=== PATIENT | female | born 1990 | race Caucasian/White ===

== ENCOUNTER 2017-09-03 01:58 | Emergency (ER) | payer OTHER ==
[2017-09-03 02:18] VITALS: BP 148/98; PULSE 86; O2SAT 100
[2017-09-03] MEDS ORDERED: AMOXIL 500 MG PO ONE (02:22)
[2017-09-03] MEDS ORDERED: Tylenol #3 Tablet PO ONE (02:23)
--- NOTE | 2017-09-03 02:29 | ERPHSYRPT ---
- History of Present Illness Time Seen by Provider: 09/03/17 02:10 Source: patient Exam Limitations: clinical condition Patient Subjective Stated Complaint: staes she has a new job where she wears ear pieces. irritation and pain to the ears since wearing them Triage Nursing Assessment: ears with no redness noted to outer canal. no drainage noted. painful to touch bilaterally. slight dizziness. denies fever Physician History: PATIENT STATES AFTER USING EAR PLUGS AT WORK FOR 2 DAYS, COMPLAINS OF BILATERAL EARACHES. HAS ONSET OF SEVERE PAIN AND PLACING VINEGAR INTO EAR CANALS. DENIES FEVER, SORETHROAT OR CHILLS. Timing/Duration: gradual onset Severity: severe ENT Location: ear (R), ear (L) Prearrival Treatment: over the counter meds Associated Symptoms: ear pain (R), ear pain (L) Allergies/Adverse Reactions: hydrocodone bitartrate [From Vicodin] Allergy (Verified 09/25/15 23:46) Hx Tetanus, Diphtheria Vaccination/Date Given: Yes Hx Influenza Vaccination/Date Given: No Hx Pneumococcal Vaccination/Date Given: No - Review of Systems Constitutional: No Fever, No Chills Eyes: No Symptoms Ears, Nose, & Throat: Ear Pain Respiratory: No Symptoms, No Cough, No Dyspnea Cardiac: No Chest Pain, No Edema, No Syncope Abdominal/Gastrointestinal: No Abdominal Pain, No Nausea, No Vomiting, No Diarrhea Genitourinary Symptoms: No Symptoms, No Dysuria Musculoskeletal: No Back Pain, No Neck Pain Skin: No Rash Neurological: No Dizziness, No Focal Weakness, No Sensory Changes Psychological: No Symptoms Endocrine: No Symptoms All Other Systems: Reviewed and Negative - Past Medical History Pertinent Past Medical History: Yes Neurological History: No Pertinent History ENT History: No Pertinent History Cardiac History: No Pertinent History Respiratory History: No Pertinent History Endocrine Medical History: No Pertinent History Musculoskeletal History: No Pertinent History GI Medical History: Hemorrhoids History: Other Psycho-Social History: Anxiety Female Reproductive Disorders: No Pertinent History Other Medical History: OCC PANIC ATTACK REGARDING UNKNOWN THINGS. STENT IN MY RIGHT KIDNEY - Past Surgical History Past Surgical History: Yes Neuro Surgical History: No Pertinent History Cardiac: No Pertinent History Respiratory: No Pertinent History Gastrointestinal: No Pertinent History Genitourinary: No Pertinent History Musculoskeletal: Orthopedic Surgery Female Surgical History: Tubal Ligation Other Surgical History: hand surg,.kidney stone removed - Social History Smoking Status: Current every day smoker How long have you smoked: 9 Exposure to second hand smoke: No Drug Use: none Patient Lives Alone: No - Female History Hx Now: No - Nursing Vital Signs Nursing Vital Signs: Initial Vital Signs Temperature 98 F 09/03/17 02:10 Pulse Rate 86 09/03/17 02:10 Respiratory Rate 16 09/03/17 02:10 Blood Pressure 148/98 09/03/17 02:10 O2 Sat by Pulse Oximetry 100 09/03/17 02:10 Pain Scale Pain Intensity 6 - Physical Exam General Appearance: mild distress Eye Exam: bilateral eye: normal inspection, PERRL, EOMI Ear Exam: left ear: TM bulging, bilateral ear: auricle normal (TENDERNESS UPON PALPATION OF TRAGUS), TM red, other (CANAL THICKENING WITH ERYTHEMA) Nasal Exam: normal inspection Throat Exam: pharynx normal, moist mucus membranes, No tonsillar exudate Neck Exam: supple Cardiovascular/Respiratory Exam: normal breath sounds, regular rate/rhythm SpO2 Interpretation: normal SpO2: 100 Oxygen Delivery: Room Air Ordered Tests: Medication Summary Generic Name Dose Route Start Last Admin Trade Name Freq PRN Reason Stop Dose Admin Acetaminophen/Codeine Phosphate 1 tab 09/03/17 02:23 Tylenol #3 Tablet PO 09/03/17 02:24 STAT ONE Amoxicillin 500 mg 09/03/17 02:22 Amoxil 500 Mg PO 09/03/17 02:23 STAT ONE - Progress Progress Note: 09/03/17 02:29 ADMINISTERED AMOXICILLIN 500MG, TYLENOL #3 ORALLY Counseled pt/family regarding: diagnosis, need for follow-up - Departure Time of Disposition: 02:45 Departure Disposition: Home Clinical Impression: LEFT OTITIS MEDIA, BILATERAL OTITIS EXTERNA Condition: Stable Critical Care Time: No Referrals: DOREEN STEVENS MD [Primary Care Provider] - Additional Instructions: BEGIN ANTIBIOTIC AUGMENTIN 875MG TWICE DAILY FOR 10 DAYS. APPLY 3 DROPS OF CORTISPORIN OTIC SUSPENSION INTO BOTH EAR CANALS 4 TIMES DAILY FOR 7 DAYS. TYLENOL #3 EVERY 4 HOURS NEEDED FOR PAIN. CONSULT YOUR PRIMARY CARE PROVIDER FOR FOLLOWUP. RETURN TO WORK 09/07/2017. Prescriptions: Codeine Phosphate/APAP #3 [Tylenol #3 Tablet] 1 tab PO Q4HPRN PRN #15 tablet PRN Reason: Pain Amox Tr/Potass Clav. 875 mg [Augmentin 875-125 Tablet] 875 mg PO BID #20 tablet Eran/Baci/Poly/Hc Ear Susp [Cortisporin Ear Drops 10 ml Suspension] 3 drops OT QID 7 Days #1 bottle
[2017-09-03] MEDS ORDERED: AMOXIL 500 MG ONE (02:30)
[2017-09-03] MEDS ORDERED: Tylenol #3 Tablet ONE (02:30)
== END 2017-09-03 03:00 | disposition home or self-care (01) ==
LOC: ED 01:58
DX: H66.92 Otitis media, unspecified, left ear (principal); H60.93 Unspecified otitis externa, bilateral
CPT/HCPCS: 99283; A9270-GY

== ENCOUNTER 2018-02-07 15:28 | Emergency (ER) | payer SELFPAY ==
[2018-02-07 15:46] VITALS: O2SAT 98
--- NOTE | 2018-02-07 15:57 | ERPHSYRPT ---
- History of Present Illness Time Seen by Provider: 02/07/18 15:45 Source: patient Exam Limitations: no limitations Patient Subjective Stated Complaint: cough, sore throat, wheezing for three days Triage Nursing Assessment: ambulated to room per self. occasional dry cough noted. exp wheezes noted. resp nonlabored. Physician History: 27 y/o white female smoker presents with cough, sore throat and wheezing for 3 days. pt can use tylenol with codeine but not hydrocodone based meds. Timing/Duration: day(s) (3) Cough Quality/Degree: mild (more severe today) Possible Cause: occasional episodes Modifying Factors: Improves With: coughing, deep breath Associated Symptoms: cough, nasal drainage, sore throat, wheezing, No fever, No chills, No headache, No muscle aches, No nasal congestion, No shortness of breath Allergies/Adverse Reactions: hydrocodone bitartrate [From Vicodin] Allergy (Verified 09/25/15 23:46) Hx Tetanus, Diphtheria Vaccination/Date Given: Yes Hx Influenza Vaccination/Date Given: No Hx Pneumococcal Vaccination/Date Given: No - Review of Systems Constitutional: No Symptoms, No Fever, No Chills Eyes: No Symptoms, Discharge Ears, Nose, & Throat: No Symptoms, Throat Pain, No Ear Pain, No Nose Congestion , No Nose Discharge, No Sinus Drainage Respiratory: Cough, Wheezing, No Stridor Cardiac: No Symptoms, No Chest Pain, No Palpitations, No Syncope Abdominal/Gastrointestinal: No Symptoms, No Abdominal Pain, No Nausea, No Vomiting, No Diarrhea Genitourinary Symptoms: No Symptoms, Dysuria, No Hematuria Musculoskeletal: No Symptoms Skin: No Symptoms Neurological: No Symptoms Psychological: No Symptoms Endocrine: No Symptoms Hematologic/Lymphatic: No Symptoms Immunological/Allergic: No Symptoms All Other Systems: Reviewed and Negative - Past Medical History Pertinent Past Medical History: Yes Neurological History: No Pertinent History ENT History: No Pertinent History Cardiac History: No Pertinent History Respiratory History: No Pertinent History Endocrine Medical History: No Pertinent History Musculoskeletal History: No Pertinent History GI Medical History: Hemorrhoids History: Other Psycho-Social History: Anxiety Female Reproductive Disorders: No Pertinent History Other Medical History: OCC PANIC ATTACK REGARDING UNKNOWN THINGS. STENT IN MY RIGHT KIDNEY - Past Surgical History Past Surgical History: Yes Neuro Surgical History: No Pertinent History Cardiac: No Pertinent History Respiratory: No Pertinent History Gastrointestinal: No Pertinent History Genitourinary: No Pertinent History Musculoskeletal: Orthopedic Surgery Female Surgical History: Tubal Ligation Other Surgical History: hand surg,.kidney stone removed - Social History Smoking Status: Current every day smoker How long have you smoked: 13 Exposure to second hand smoke: No Drug Use: none Patient Lives Alone: No - Female History Hx Last Menstrual Period: now Hx Now: No - Nursing Vital Signs Nursing Vital Signs: Initial Vital Signs Temperature 97.9 F 02/07/18 15:36 Pulse Rate 91 H 02/07/18 15:36 Respiratory Rate 18 02/07/18 15:36 Blood Pressure 139/98 02/07/18 15:36 O2 Sat by Pulse Oximetry 98 02/07/18 15:36 Pain Scale Pain Intensity 7 - Physical Exam General Appearance: no apparent distress, alert, anxiety Eye Exam: PERRL/EOMI, eyes nml inspection Ears, Nose, Throat Exam: normal ENT inspection, TMs normal, pharynx normal, moist mucous membranes Neck Exam: normal inspection, non-tender, supple, full range of motion, No lymphadenopathy Respiratory Exam: airway intact, wheezing (mild bilat), No respiratory distress , No diminished breath sounds, No stridor Cardiovascular Exam: regular rate/rhythm, normal heart sounds, normal peripheral pulses Gastrointestinal/Abdomen Exam: soft, normal bowel sounds, No tenderness, No distention, No mass, No guarding Pelvic Exam: not done Rectal Exam: not done Back Exam: normal inspection, normal range of motion, No CVA tenderness, No vertebral tenderness Extremity Exam: normal inspection, normal range of motion, pelvis stable Neurologic Exam: alert, oriented x 3, cooperative, process pumper II-XII nml as tested Skin Exam: normal color, warm, dry Lymphatic Exam: No adenopathy SpO2 Interpretation: normal SpO2: 98 Oxygen Delivery: Room Air - Course Nursing assessment & vital signs reviewed: Yes Ordered Tests: Medication Summary Generic Name Dose Route Start Last Admin Trade Name Freq PRN Reason Stop Dose Admin Acetaminophen/Codeine Phosphate 10 ml 02/07/18 16:00 Tylenol W/ Codeine 5 Ml Ud Cup PO 02/07/18 16:01 STAT ONE Ceftriaxone Sodium 1,000 mg 02/07/18 16:01 Rocephin 1000 Mg Inj IM 02/07/18 16:02 STAT ONE Methylprednisolone Sodium Succinate 125 mg 09/09/18 15:59 Solu-Medrol 125 Mg IM 02/07/18 16:00 STAT ONE - Progress Progress: unchanged Air Movement: good Blood Culture(s) Obtained: No Antibiotics given: Yes Counseled pt/family regarding: diagnosis, need for follow-up - Departure Time of Disposition: 16:02 Departure Disposition: Home Clinical Impression: Bronchitis Condition: Stable Critical Care Time: No Referrals: DOREEN STEVENS MD [Primary Care Provider] - Additional Instructions: drink plenty of fluids. stop smoking. take meds as prescribed Prescriptions: Codeine Phosphate/APAP [Tylenol W/ Codeine 118 ml] 10 ml PO Q8H PRN PRN #120 ml PRN Reason: Cough Azithromycin 250 mg [Zithromax 250 MG TABLET] 250 mg PO ZPACK #6 tablet Prednisone 10 mg [Deltasone 10 mg] 10 mg PO TID #12 tablet
[2018-02-07] MEDS ORDERED: solu-MEDROL 125 MG IM ONE (15:59)
[2018-02-07] MEDS ORDERED: TYLENOL W/ CODEINE 5 ML UD CUP PO ONE (16:00)
[2018-02-07] MEDS ORDERED: Rocephin 1000 MG INJ IM ONE (16:01)
[2018-02-07] MEDS ORDERED: Rocephin 1000 MG INJ ONE (16:05)
[2018-02-07] MEDS ORDERED: TYLENOL W/ CODEINE 5 ML UD CUP ONE ×2 (16:05→16:17)
[2018-02-07] MEDS ORDERED: solu-MEDROL 125 MG ONE (16:05)
[2018-02-07 16:57] VITALS: BP 130/70; PULSE 82
== END 2018-02-07 16:57 | disposition home or self-care (01) ==
LOC: ED 15:28
DX: J40 Bronchitis, not specified as acute or chronic (principal)
CPT/HCPCS: 96372; 99284; J0696; J2930; A9270-GY

== ENCOUNTER 2018-03-25 00:27 | Emergency (ER) | payer OTHER ==
[2018-03-25] MEDS ORDERED: Sodium Chloride 0.9% 1000 ML 1,000 ML IV STA (00:44)
[2018-03-25] MEDS ORDERED: TORAdol 30 mg Injection IV ONE (00:44)
[2018-03-25] MEDS ORDERED: TORAdol 30 mg Injection ONE (00:47)
[2018-03-25] MEDS ORDERED: Sodium Chloride 0.9% 1000 ML 1,000 ML ONE (00:48)
--- NOTE | 2018-03-25 00:50 | ERPHSYRPT ---
- History of Present Illness Time Seen by Provider: 03/25/18 00:47 Historian: patient Exam Limitations: no limitations Patient Subjective Stated Complaint: pt co llq pain and left flank pain for approx 25 mins; nausea but denies vomiting; also co painful urination. Triage Nursing Assessment: pt a&o x3; skin p, w, & d; very anxious upon arrival ; family at bedside; no other distress noted. Physician History: Is a 27-year-old white female with history of anxiety, panic attacks, stent in her right kidney. She arrives with complaint of pain in her left lower quadrant radiating to her back dysuria symptoms for 20 minutes she has no nausea no vomiting no fevers. Past medical history includes anxiety, panic attacks, stent in the right kidney. Past surgical history includes tubal ligation, hand surgery, kidney stone removal. Timing/Duration: today (20 minutes prior to arrival) Activities at Onset: rest Quality: sharpness Abdominal Pain Onset Location: LLQ, flank (left flank) Pain Radiation: flank (left flank) Severity of Pain-Max: moderate Severity of Pain-Current: moderate Modifying Factors: Improves With: nothing Associated Symptoms: back (left flank pain), No chest pain, No diaphoresis, No diarrhea, No fever/chills, No fatigue, No headache, No heartburn, No loss of appetite, No nausea, No neck pain, No rash, No shortness of breath, No syncope, No vomiting, No weakness Previous symptoms: no prior history Allergies/Adverse Reactions: hydrocodone bitartrate [From Vicodin] Allergy (Verified 03/25/18 00:41) Hx Tetanus, Diphtheria Vaccination/Date Given: Yes Hx Influenza Vaccination/Date Given: No Hx Pneumococcal Vaccination/Date Given: Yes Immunizations Up to Date: Yes - Review of Systems Constitutional: No Fever, No Chills Eyes: No Symptoms Ears, Nose, & Throat: No Symptoms Respiratory: No Cough, No Dyspnea Cardiac: No Chest Pain, No Edema, No Syncope Abdominal/Gastrointestinal: Abdominal Pain (left lower quadrant pain) Genitourinary Symptoms: Dysuria, Flank Pain (left flank pain), No Frequency, No Hematuria, No Hesitancy, No Incontinence, No Urgency, No Urinary Retention, No Menorrhagia, No , No Vaginal Bleeding, No Vaginal Discharge, No Vaginal Itching Musculoskeletal: No Back Pain, No Neck Pain Skin: No Symptoms Neurological: No Dizziness, No Focal Weakness, No Sensory Changes Psychological: No Symptoms Endocrine: No Symptoms All Other Systems: Reviewed and Negative - Past Medical History Pertinent Past Medical History: Yes Neurological History: No Pertinent History ENT History: No Pertinent History Cardiac History: No Pertinent History Respiratory History: No Pertinent History Endocrine Medical History: No Pertinent History Musculoskeletal History: No Pertinent History GI Medical History: Hemorrhoids History: Other Psycho-Social History: Anxiety Female Reproductive Disorders: No Pertinent History Other Medical History: OCC PANIC ATTACK REGARDING UNKNOWN THINGS. STENT IN MY RIGHT KIDNEY - Past Surgical History Past Surgical History: Yes Neuro Surgical History: No Pertinent History Cardiac: No Pertinent History Respiratory: No Pertinent History Gastrointestinal: No Pertinent History Genitourinary: No Pertinent History Musculoskeletal: Orthopedic Surgery Female Surgical History: Tubal Ligation Other Surgical History: hand surg,.kidney stone removed - Social History Smoking Status: Current every day smoker How long have you smoked: 13 Exposure to second hand smoke: Yes Drug Use: none Patient Lives Alone: No - Female History Hx Last Menstrual Period: 2 weeks ago Hx Now: No - Nursing Vital Signs Nursing Vital Signs: Initial Vital Signs Temperature 98.3 F 03/25/18 00:34 Pulse Rate 120 H 03/25/18 00:34 Respiratory Rate 24 03/25/18 00:34 Blood Pressure 150/94 03/25/18 00:34 O2 Sat by Pulse Oximetry 98 03/25/18 00:34 Pain Scale Pain Intensity 9 - Physical Exam General Appearance: moderate distress, alert Eye Exam: PERRL/EOMI, eyes nml inspection Ears, Nose, Throat Exam: normal ENT inspection, pharynx normal, moist mucous membranes Neck Exam: normal inspection, non-tender, supple, full range of motion Respiratory Exam: normal breath sounds, lungs clear, No respiratory distress Cardiovascular Exam: regular rate/rhythm, normal heart sounds Gastrointestinal/Abdomen Exam: soft, normal bowel sounds, tenderness (left lower quadrant tenderness), No distention, No mass, No guarding, No ecchymosis, No pulsatile mass, No rebound, No hernia, No hepatomegaly, No organomegaly, No splenomegaly Back Exam: normal inspection, normal range of motion, No CVA tenderness, No vertebral tenderness Extremity Exam: normal inspection, normal range of motion, pelvis stable Neurologic Exam: alert, oriented x 3, cooperative, nursery helper II-XII nml as tested, normal mood/affect, nml cerebellar function, sensation nml, No motor deficits Skin Exam: normal color, warm, dry SpO2 Interpretation: normal (98%) SpO2: 98 Oxygen Delivery: Room Air - Course Nursing assessment & vital signs reviewed: Yes EKG Interpreted by Me: RATE (88 bpm), Sinus Rhythm, NORMAL AXIS, Other (EKG: Sinus rhythm, 88 bpm, normal axis, normal EKG) Ordered Tests: Active Orders 24 hr Category Date Time Status EKG-ER Only STAT Care 03/25/18 02:48 Active IV Insertion STAT Care 03/25/18 00:44 Active AMYLASE Stat Lab 03/25/18 00:50 Completed CBC W DIFF Stat Lab 03/25/18 00:50 Completed CMP Stat Lab 03/25/18 00:50 Completed CULTURE,URINE Stat Lab 03/25/18 01:27 Received ETHYL ALCOHOL Stat Lab 03/25/18 00:50 Completed HCG QUALITATIVE,SERUM Stat Lab 03/25/18 00:50 Completed LIPASE Stat Lab 03/25/18 00:50 Completed UA W/RFX UR CULTURE Stat Lab 03/25/18 01:27 Completed Urine Triage Profile Stat Lab 03/25/18 01:27 Completed Medication Summary Discontinued Medications Generic Name Dose Route Start Last Admin Trade Name Freq PRN Reason Stop Dose Admin Acetaminophen/Codeine Phosphate 2 tab 03/25/18 02:11 Tylenol #3 Tablet PO 03/25/18 02:12 SENT HOME W/ PATIENT ONE Sodium Chloride 1,000 mls @ 999 mls/hr 03/25/18 00:44 03/25/18 00:50 Sodium Chloride 0.9% 1000 Ml IV 03/25/18 01:44 999 mls/hr .Q1H1M STA Administration Sodium Chloride Confirm 03/25/18 00:48 Sodium Chloride 0.9% 1000 Ml Administered 03/25/18 00:49 Dose 1,000 mls @ ud .ROUTE .STK-MED ONE Ketorolac Tromethamine 30 mg 03/25/18 00:44 03/25/18 00:50 Toradol 30 Mg Injection IV 03/25/18 00:45 30 mg STAT ONE Administration Ketorolac Tromethamine Confirm 03/25/18 00:47 Toradol 30 Mg Injection Administered 03/25/18 00:48 Dose 30 mg .ROUTE .STK-MED ONE Trimethoprim/Sulfamethoxazole 1 tab 03/25/18 02:10 03/25/18 02:15 Bactrim Ds Tablet PO 03/25/18 02:11 1 tab STAT ONE Administration Trimethoprim/Sulfamethoxazole Confirm 03/25/18 02:15 Bactrim Ds Tablet Administered 03/25/18 02:16 Dose 1 tab PO .STK-MED ONE Lab/Rad Data: Laboratory Result Diagrams 03/25/18 00:50 03/25/18 00:50 Laboratory Results 03/25/18 03/25/18 03/25/18 Range/Units 01:27 01:27 00:50 WBC (4.0-10.5) K/mm3 RBC (4.1-5.4) M/mm3 Hgb (12.0-16.0) gm/dl Hct (35-47) % MCV (78-100) fl MCH (26-32) pg MCHC (32-36) g/dl RDW (11.5-14.0) % Plt Count (150-450) K/mm3 MPV (6-9.5) fl Gran % (36.0-66.0) % Eos # (Auto) (0-0.5) Absolute Lymphs (auto) (1.0-4.6) Absolute Monos (auto) (0.0-1.3) Lymphocytes % (24.0-44.0) % Monocytes % (0.0-12.0) % Eosinophils % (0.00-5.0) % Basophils % (0.0-0.4) % Absolute Granulocytes (1.4-6.9) Basophils # (0-0.4) Sodium (137-145) mmol/L Potassium (3.5-5.1) mmol/L Chloride (98-107) mmol/L Carbon Dioxide (22-30) mmol/L Anion Gap (5-15) MEQ/L BUN (7-17) mg/dL Creatinine (0.52-1.04) mg/dL Estimated GFR ML/MIN Glucose (74-106) mg/dL Calcium (8.4-10.2) mg/dL Total Bilirubin (0.2-1.3) mg/dL AST (14-36) U/L ALT (0-35) U/L Alkaline Phosphatase (38-126) U/L Serum Total Protein (6.3-8.2) g/dL Albumin (3.5-5.0) g/dL Amylase (30-110) U/L Lipase (23-300) U/L Serum , Qual NEGATIVE (Negative) Urine Color YELLOW (YELLOW) Urine Appearance SLIGHTLY CLOUDY (CLEAR) Urine pH 6.0 (5-6) Ur Specific [place] 1.024 (1.005-1.025) Urine Protein 30 (Negative) Urine Ketones TRACE (NEGATIVE) Urine Blood NEGATIVE (0-5) Edilberto/ul Urine Nitrite NEGATIVE (NEGATIVE) Urine Bilirubin NEGATIVE (NEGATIVE) Urine Urobilinogen 4 (0-1) mg/dL Ur Leukocyte Esterase SMALL (NEGATIVE) Urine WBC (Auto) 11-15 (0-5) /HPF Urine RBC (Auto) 3-5 (0-2) /HPF U Epithel Cells (Auto) RARE (FEW) /HPF Urine Bacteria (Auto) RARE (NEGATIVE) /HPF Urine Mucus (Auto) SLIGHT (NEGATIVE) /HPF Urine Culture Reflexed YES (NO) Urine Glucose NEGATIVE (NEGATIVE) mg/dL Urine Opiates Level NEGATIVE (NEGATIVE) Ur Methadone NEGATIVE (NEGATIVE) Urine Barbiturates NEGATIVE (NEGATIVE) Ur Phencyclidine (PCP) NEGATIVE (NEGATIVE) Urine Amphetamine NEGATIVE (NEGATIVE) U Benzodiazepine Level NEGATIVE (NEGATIVE) Urine Cocaine NEGATIVE (NEGATIVE) Urine Marijuana (THC) NEGATIVE (NEGATIVE) Ethyl Alcohol (0-10) mg/dL 03/25/18 03/25/18 03/25/18 Range/Units 00:50 00:50 00:50 WBC 11.7 H (4.0-10.5) K/mm3 RBC 4.53 (4.1-5.4) M/mm3 Hgb 11.7 L (12.0-16.0) gm/dl Hct 36.7 (35-47) % MCV 81.0 (78-100) fl MCH 25.8 L (26-32) pg MCHC 31.9 L (32-36) g/dl RDW 17.7 H (11.5-14.0) % Plt Count 392 (150-450) K/mm3 MPV 9.9 H (6-9.5) fl Gran % 46.2 (36.0-66.0) % Eos # (Auto) 0.09 (0-0.5) Absolute Lymphs (auto) 5.07 H (1.0-4.6) Absolute Monos (auto) 1.06 (0.0-1.3) Lymphocytes % 43.5 (24.0-44.0) % Monocytes % 9.1 (0.0-12.0) % Eosinophils % 0.8 (0.00-5.0) % Basophils % 0.4 (0.0-0.4) % Absolute Granulocytes 5.39 (1.4-6.9) Basophils # 0.05 (0-0.4) Sodium 140 (137-145) mmol/L Potassium 3.9 (3.5-5.1) mmol/L Chloride 104 (98-107) mmol/L Carbon Dioxide 26 (22-30) mmol/L Anion Gap 15.0 (5-15) MEQ/L BUN 10 (7-17) mg/dL Creatinine 0.75 (0.52-1.04) mg/dL Estimated GFR > 60.0 ML/MIN Glucose 121 H (74-106) mg/dL Calcium 10.1 (8.4-10.2) mg/dL Total Bilirubin 0.30 (0.2-1.3) mg/dL AST 19 (14-36) U/L ALT 16 (0-35) U/L Alkaline Phosphatase 64 (38-126) U/L Serum Total Protein 8.2 (6.3-8.2) g/dL Albumin 4.8 (3.5-5.0) g/dL Amylase 53 (30-110) U/L Lipase 44 (23-300) U/L Serum , Qual (Negative) Urine Color (YELLOW) Urine Appearance (CLEAR) Urine pH (5-6) Ur Specific [place] (1.005-1.025) Urine Protein (Negative) Urine Ketones (NEGATIVE) Urine Blood (0-5) Edilberto/ul Urine Nitrite (NEGATIVE) Urine Bilirubin (NEGATIVE) Urine Urobilinogen (0-1) mg/dL Ur Leukocyte Esterase (NEGATIVE) Urine WBC (Auto) (0-5) /HPF Urine RBC (Auto) (0-2) /HPF U Epithel Cells (Auto) (FEW) /HPF Urine Bacteria (Auto) (NEGATIVE) /HPF Urine Mucus (Auto) (NEGATIVE) /HPF Urine Culture Reflexed (NO) Urine Glucose (NEGATIVE) mg/dL Urine Opiates Level (NEGATIVE) Ur Methadone (NEGATIVE) Urine Barbiturates (NEGATIVE) Ur Phencyclidine (PCP) (NEGATIVE) Urine Amphetamine (NEGATIVE) U Benzodiazepine Level (NEGATIVE) Urine Cocaine (NEGATIVE) Urine Marijuana (THC) (NEGATIVE) Ethyl Alcohol < 10 (0-10) mg/dL - Progress Progress: improved Progress Note: 03/25/18 02:12 27-year-old white female with history of anxiety, panic attacks, stent in her right kidney and a history of kidney stones in the past. Arrives with the complaint of severe left-sided lower abdominal pain radiating to her left flank going on for 20 minutes prior to arrival. She states she's had dysuria no hematuria. Patient is markedly improved after IV normal saline and Toradol 30 mg IV. Patient's labs a chemistry essentially normal CBC White cell 11.7 hemoglobin 11.7 hematocrit 36.7 platelets 392 urinalysis 11-15 white cells per high-power field 3-5 red cells. Patient is actually laughing and joking with her family at this point in time we 'll plan to discharge her. Will plan to send her home with Bactrim DS one orally twice a day for 10 days,. Will write for Tylenol 3 #12 tablets one orally every 4-6 hours as needed for pain. , Patient also to take Motrin [id number] 2-3 tablets every 6 hours as needed. Patient follow-up with her family doctor. To return for acute distress or for severe symptoms. . 03/25/18 02:49 Nurse asked me ago talk with the patient apparently she's been having some pain underneath her right breast described as crampiness. Patient does not appear to be in acute distress. In fact she does not appear to be in any distress. And is smiling when she tells me this. Will go ahead and check an EKG on this patient. 03/25/18 02:56 EKG on this patient, sinus rhythm, 88 bpm, normal axis, no acute ST or T wave changes. I have offered to obtain a troponin on this patient and consider a repeat troponin at 3 hours. She does not want to do this and wants to go home. Will discharge patient - Departure Time of Disposition: 02:57 Departure Disposition: Home Clinical Impression: Abdominal pain Qualifiers: Abdominal location: left lower quadrant Qualified Code(s): R10.32 - Left lower quadrant pain UTI (urinary tract infection) Qualifiers: Urinary tract infection type: site unspecified Hematuria presence: with hematuria Qualified Code(s): N39.0 - Urinary tract infection, site not specified Condition: Fair Critical Care Time: No Referrals: DOREEN STEVENS MD [Primary Care Provider] - Additional Instructions: Return home. Plenty of fluids. Bactrim DS as prescribed. Tylenol 3 one orally every 4-6 hours as needed for pain. OTC Advil 2-3 tablets orally every 6 hours as needed for pain up to 5 days. Follow-up with your family doctor. Return for acute distress or for severe symptoms. Prescriptions: Codeine Phosphate/APAP #3 [Tylenol #3 Tablet] 1 tab PO Q4-6HPRN PRN #12 tablet MDD 6 tablets PRN Reason: Pain Smz/Tmp Ds Tablet [Bactrim Ds Tablet] 1 tab PO Q12H #20 tablet
[2018-03-25 00:55] LABS: BASOPHIL % 0.4 % (0.0-0.4); Basophil (Absolute #) 0.05 (0-0.4); Eosinophil % 0.8 % (0.00-5.0); Eosinophil (Absolute #) 0.09 (0-0.5); Granulocyte Absolute (ANC) 5.39 (1.4-6.9); Granulocytes % 46.2 % (36.0-66.0); Hematocrit 36.7 % (35-47); Hemoglobin 11.7 gm/dl (12.0-16.0); Lymphocyte (Absolute #) 5.07 (1.0-4.6); Lymphocytes % 43.5 % (24.0-44.0); Mean Corpuscular Hemoglobin 25.8 pg (26-32); Mean Corpuscular Hgb Concent. 31.9 g/dl (32-36); Mean Platelet Volume 9.9 fl (6-9.5); Monocyte (Absolute #) 1.06 (0.0-1.3); Monocytes % 9.1 % (0.0-12.0); Platelet Count 392 K/mm3 (150-450); Red Blood Count 4.53 M/mm3 (4.1-5.4); Red Cell Distribution Width 17.7 % (11.5-14.0); White Blood Count 11.7 K/mm3 (4.0-10.5)
[2018-03-25 01:16] LABS: ALBUMIN 4.8 g/dL (3.5-5.0); ALKALINE PHOSPHATASE 64 U/L (38-126); AMYLASE 53 U/L (30-110); BLOOD UREA NITROGEN 10 mg/dL (7-17); CHLORIDE 104 mmol/L (98-107); Calcium 10.1 mg/dL (8.4-10.2); Carbon Dioxide 26 mmol/L (22-30); Creatinine 1 0.75 mg/dL (0.52-1.04); Glucose 121 mg/dL (74-106); LIPASE 44 U/L (23-300); Potassium 3.9 mmol/L (3.5-5.1); SGOT/AST 19 U/L (14-36); SGPT/ALT 16 U/L (0-35); SODIUM 140 mmol/L (137-145); Total Protein 8.2 g/dL (6.3-8.2)
[2018-03-25 01:47] LABS: Amphetamine,Urine NEGATIVE (NEGATIVE); Barbiturate,Urine NEGATIVE (NEGATIVE); Benzodiazepine,Urine NEGATIVE (NEGATIVE); Cocaine,Urine NEGATIVE (NEGATIVE); Methadone,Urine NEGATIVE (NEGATIVE); Opiate,Urine NEGATIVE (NEGATIVE); PCP,Urine NEGATIVE (NEGATIVE); THC,Urine NEGATIVE (NEGATIVE)
[2018-03-25 01:58] LABS: Appearance SLIGHTLY CLOUDY (CLEAR); Leukocyte Esterase SMALL (NEGATIVE); Nitrite NEGATIVE (NEGATIVE); Protein,Urine Dip 30 (Negative); Specific Gravity 1.024 (1.005-1.025)
[2018-03-25 01:59] LABS: Bilirubin NEGATIVE (NEGATIVE); Blood NEGATIVE Ery/ul (0-5); Glucose NEGATIVE (NEGATIVE); Ketones TRACE (NEGATIVE); Urobilinogen 4 mg/dL (0-1)
[2018-03-25 02:08] VITALS: BP 110/77; PULSE 93
[2018-03-25] MEDS ORDERED: BACTRIM DS TABLET PO ONE ×2 (02:10→02:15)
[2018-03-25] MEDS ORDERED: Tylenol #3 Tablet PO ONE (02:11)
[2018-03-25 02:18] VITALS: O2SAT 98
[2018-03-25] MEDS ORDERED: Tylenol #3 Tablet ONE (03:06)
== END 2018-03-25 03:16 | disposition home or self-care (01) ==
LOC: ED 00:27
DX: R10.32 Left lower quadrant pain (principal); N39.0 Urinary tract infection, site not specified
CPT/HCPCS: 36000; 36415; 80053; 80307; 81001; 81025; 82150; 83690; 85025; 87086; 96360; 96374; 99284; J1885; A9270-GY; G0480

== ENCOUNTER 2018-08-24 23:47 | Emergency (ER) | payer OTHER ==
--- NOTE | 2018-08-24 23:57 | ERPHSYRPT ---
- History of Present Illness Time Seen by Provider: 08/24/18 23:56 Historian: patient, family Exam Limitations: no limitations Physician History: 27 y/o white female presents with suprapubic abd pain and left flank pain since yesterday. pt has associated dysuria and frequency. pt has h/o recurrent utis and has had ureteral stones in the past. no n/v/d Timing/Duration: day(s) (1) Quality: burning, pressure Abdominal Pain Onset Location: suprapubic Pain Radiation: flank (left) Severity of Pain-Max: mild Severity of Pain-Current: mild Modifying Factors: Improves With: palpation, urinating Associated Symptoms: other (dysuria, frequency) Previous symptoms: same symptoms as today Allergies/Adverse Reactions: hydrocodone bitartrate [From Vicodin] Allergy (Verified 03/25/18 00:41) Hx Tetanus, Diphtheria Vaccination/Date Given: Yes Hx Influenza Vaccination/Date Given: No Hx Pneumococcal Vaccination/Date Given: Yes - Review of Systems Constitutional: No Symptoms Eyes: No Symptoms Ears, Nose, & Throat: No Symptoms Respiratory: No Symptoms Cardiac: No Symptoms Abdominal/Gastrointestinal: Abdominal Pain (mild suprapubic) Genitourinary Symptoms: Dysuria, Frequency, Flank Pain (mild left) Musculoskeletal: No Symptoms Skin: No Symptoms Neurological: No Symptoms Psychological: No Symptoms Endocrine: No Symptoms Hematologic/Lymphatic: No Symptoms Immunological/Allergic: No Symptoms All Other Systems: Reviewed and Negative - Past Medical History Pertinent Past Medical History: Yes Neurological History: No Pertinent History ENT History: No Pertinent History Cardiac History: No Pertinent History Respiratory History: No Pertinent History Endocrine Medical History: No Pertinent History Musculoskeletal History: No Pertinent History GI Medical History: Hemorrhoids History: Other Psycho-Social History: Anxiety Female Reproductive Disorders: No Pertinent History Other Medical History: OCC PANIC ATTACK REGARDING UNKNOWN THINGS. STENT IN MY RIGHT KIDNEY - Past Surgical History Past Surgical History: Yes Neuro Surgical History: No Pertinent History Cardiac: No Pertinent History Respiratory: No Pertinent History Gastrointestinal: No Pertinent History Genitourinary: No Pertinent History Musculoskeletal: Orthopedic Surgery Female Surgical History: Tubal Ligation Other Surgical History: hand surg,.kidney stone removed - Social History Smoking Status: Current every day smoker How long have you smoked: 13 Exposure to second hand smoke: Yes Drug Use: none Patient Lives Alone: No - Nursing Vital Signs Nursing Vital Signs: Initial Vital Signs Temperature 98.7 F 03/26/19 23:57 Pulse Rate 94 H 08/24/18 23:57 Respiratory Rate 16 08/24/18 23:57 Blood Pressure 124/81 08/24/18 23:57 O2 Sat by Pulse Oximetry 98 08/24/18 23:57 Pain Scale Pain Intensity 9 - Physical Exam General Appearance: no apparent distress, alert, anxiety Eye Exam: PERRL/EOMI Ears, Nose, Throat Exam: normal ENT inspection, moist mucous membranes Neck Exam: normal inspection, non-tender, supple, full range of motion Respiratory Exam: normal breath sounds, lungs clear, airway intact, No chest tenderness, No respiratory distress Cardiovascular Exam: regular rate/rhythm, normal heart sounds, normal peripheral pulses Gastrointestinal/Abdomen Exam: soft, normal bowel sounds, No tenderness Pelvic Exam: not done Rectal Exam: not done Back Exam: normal inspection, normal range of motion, No CVA tenderness, No vertebral tenderness Extremity Exam: normal inspection, normal range of motion, pelvis stable Neurologic Exam: alert, oriented x 3, cooperative, 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 Skin Exam: normal color, warm, dry Lymphatic Exam: No adenopathy SpO2 Interpretation: normal O2 Delivery: Room Air - Course Nursing assessment & vital signs reviewed: Yes Ordered Tests: Active Orders 24 hr Category Date Time Status HCG,QUALITATIVE URINE Stat Lab 08/25/18 00:30 Completed Urinalysis with Microscopy Stat Lab 08/25/18 00:30 Completed Medication Summary Generic Name Dose Route Start Last Admin Trade Name Joshuaq PRN Reason Stop Dose Admin Phenazopyridine HCl 200 mg 08/25/18 00:58 Pyridium 200 Mg PO 08/25/18 00:59 STAT ONE Trimethoprim/Sulfamethoxazole 1 tab 08/25/18 00:57 Bactrim Ds Tablet PO 08/25/18 00:58 STAT STA Lab/Rad Data: Laboratory Results 08/25/18 08/25/18 Range/Units 00:30 00:30 Urine Color YELLOW (YELLOW) Urine Appearance CLOUDY (CLEAR) Urine pH 8.0 (5-6) Ur Specific [place] 1.020 (1.005-1.025) Urine Protein NEGATIVE (Negative) Urine Ketones NEGATIVE (NEGATIVE) Urine Blood NEGATIVE (0-5) Edilberto/ul Urine Nitrite NEGATIVE (NEGATIVE) Urine Bilirubin NEGATIVE (NEGATIVE) Urine Urobilinogen 2 (0-1) mg/dL Ur Leukocyte Esterase TRACE (NEGATIVE) Urine WBC (Auto) 6-10 (0-5) /HPF Urine RBC (Auto) NONE (0-2) /HPF U Epithel Cells (Auto) MANY (FEW) /HPF Urine Bacteria (Auto) RARE (NEGATIVE) /HPF Urine Mucus (Auto) SLIGHT (NEGATIVE) /HPF Urine Glucose NEGATIVE (NEGATIVE) mg/dL Urine HCG, Qual NEGATIVE (Negative) - Progress Progress: unchanged Counseled pt/family regarding: lab results, diagnosis, need for follow-up - Departure Time of Disposition: 00:59 Departure Disposition: Home Clinical Impression: UTI (urinary tract infection) Condition: Stable Critical Care Time: No Referrals: ODREEN STEVENS MD [Primary Care Provider] - Additional Instructions: drink plenty of fluids. use tylenol and ibuprofen for pain and fever. follow up with primary doctor for persistent symptoms Prescriptions: Phenazopyridine HCl 200 mg [Pyridium 200 mg] 200 mg PO TID #6 tablet Smz/Tmp Ds Tablet [Bactrim Ds Tablet] 1 udtab PO BID #14 tablet
[2018-08-25 00:42] VITALS: BP 118/71; PULSE 81; O2SAT 100
[2018-08-25 00:51] LABS: Appearance CLOUDY (CLEAR); Bacteria RARE /HPF (NEGATIVE); Bilirubin NEGATIVE (NEGATIVE); Blood NEGATIVE Ery/ul (0-5); Epithelial Cells MANY /HPF (FEW); Glucose NEGATIVE (NEGATIVE); Ketones NEGATIVE (NEGATIVE); Leukocyte Esterase TRACE (NEGATIVE); Mucus SLIGHT /HPF (NEGATIVE); Nitrite NEGATIVE (NEGATIVE); Protein,Urine Dip NEGATIVE (Negative); Urobilinogen 2 mg/dL (0-1)
[2018-08-25] MEDS ORDERED: BACTRIM DS TABLET PO STA (00:57)
[2018-08-25] MEDS ORDERED: PYRIDIUM 200 MG PO ONE (00:58)
[2018-08-25] MEDS ORDERED: PYRIDIUM 200 MG ONE (01:03)
[2018-08-25] MEDS ORDERED: BACTRIM DS TABLET PO ONE (01:03)
== END 2018-08-25 01:15 | disposition home or self-care (01) ==
LOC: ED 23:47
DX: N39.0 Urinary tract infection, site not specified (principal)
CPT/HCPCS: 81001; 84703; 99283; A9270-GY

== ENCOUNTER 2018-09-08 18:41 | Emergency (ER) | payer OTHER ==
[2018-09-08 19:05] VITALS: O2SAT 98
--- NOTE | 2018-09-08 19:15 | ERPHSYRPT ---
- History of Present Illness Time Seen by Provider: 09/08/18 19:00 Source: patient Exam Limitations: no limitations Patient Subjective Stated Complaint: diagnosed with strep yesterday but has been sick for over a week, feels like throat is raw and inflamed and like a rock is sitting in her throat, feels like she has acid reflux because it jerez so bad Triage Nursing Assessment: Pt c/o of a sore throat after being diagnosed with strep yesterday, states that she feels like her whole esophagus is raw and inflamed and like a rock is sitting in her throat, entire body is achy and weak , vitals wnl, rates pain 01/08 Physician History: 27 y/o white female presents with severe sore throat. pt dx yesterday with strep pharyngitis. cannot stand sore throat. having hard time swallowing and sleeping because of pain Timing/Duration: day(s) (several days) Severity: moderate Modifying Factors: Improves With: other (swallowing worsens) Allergies/Adverse Reactions: hydrocodone bitartrate [From Vicodin] Allergy (Verified 09/08/18 19:05) Hx Tetanus, Diphtheria Vaccination/Date Given: Yes Hx Influenza Vaccination/Date Given: No Hx Pneumococcal Vaccination/Date Given: Yes - Review of Systems Constitutional: No Symptoms Eyes: No Symptoms Ears, Nose, & Throat: Painful Swallowing Respiratory: No Symptoms Cardiac: No Symptoms Abdominal/Gastrointestinal: No Symptoms Genitourinary Symptoms: No Symptoms Musculoskeletal: No Symptoms Skin: No Symptoms Neurological: No Symptoms Psychological: No Symptoms Endocrine: No Symptoms Hematologic/Lymphatic: No Symptoms Immunological/Allergic: No Symptoms All Other Systems: Reviewed and Negative - Past Medical History Pertinent Past Medical History: Yes Neurological History: No Pertinent History ENT History: No Pertinent History Cardiac History: No Pertinent History Respiratory History: No Pertinent History Endocrine Medical History: No Pertinent History Musculoskeletal History: No Pertinent History GI Medical History: Hemorrhoids History: Other Psycho-Social History: Anxiety Female Reproductive Disorders: No Pertinent History Other Medical History: OCC PANIC ATTACK REGARDING UNKNOWN THINGS. STENT IN MY RIGHT KIDNEY - Past Surgical History Past Surgical History: Yes Neuro Surgical History: No Pertinent History Cardiac: No Pertinent History Respiratory: No Pertinent History Gastrointestinal: No Pertinent History Genitourinary: No Pertinent History Musculoskeletal: Orthopedic Surgery Female Surgical History: Tubal Ligation Other Surgical History: hand surg,.kidney stone removed - Social History Smoking Status: Current every day smoker How long have you smoked: 13 Exposure to second hand smoke: Yes Drug Use: none Patient Lives Alone: No - Female History Hx Last Menstrual Period: 09/07/2018 Hx Now: No - Nursing Vital Signs Nursing Vital Signs: Initial Vital Signs Temperature 98.7 F 09/08/18 18:49 Pulse Rate 84 09/08/18 18:49 Blood Pressure 133/79 09/08/18 18:49 O2 Sat by Pulse Oximetry 98 09/08/18 18:49 Pain Scale Pain Intensity 8 - Physical Exam General Appearance: no apparent distress, alert, anxiety Eye Exam: PERRL/EOMI Ears, Nose, Throat Exam: moist mucous membranes, pharyngeal erythema Neck Exam: normal inspection, non-tender, supple, full range of motion Respiratory Exam: normal breath sounds, lungs clear, airway intact, No chest tenderness, No respiratory distress Cardiovascular Exam: regular rate/rhythm, normal heart sounds, normal peripheral pulses Gastrointestinal/Abdomen Exam: soft, normal bowel sounds, No tenderness, No guarding, No rebound Pelvic Exam: not done Rectal Exam: not done Back Exam: normal inspection, normal range of motion, No CVA tenderness, No vertebral tenderness Extremity Exam: normal inspection, normal range of motion, pelvis stable Neurologic Exam: alert, oriented x 3, cooperative, 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 follow up with your primary doctor for further management. continue your antibiotics Prescriptions: Codeine Phosphate/APAP 5 ml [Tylenol W/ Codeine 5 ml Ud Cup] 10 ml PO Q8H PRN PRN #60 ml PRN Reason: Moderate Pain
[2018-09-08] MEDS ORDERED: Rocephin 1000 MG INJ ONE (19:38)
[2018-09-08] MEDS ORDERED: TYLENOL W/ CODEINE 5 ML UD CUP ONE (19:39)
[2018-09-08] MEDS ORDERED: XYLOCAINE HCl Viscous ONE (19:39)
[2018-09-08] MEDS: Rocephin 1000 MG INJ IM ONE (19:42)
[2018-09-08] MEDS: TYLENOL W/ CODEINE 5 ML UD CUP PO ONE (19:44)
[2018-09-08] MEDS: XYLOCAINE VISCOUS 2% 20 ML CUP PO ONE (19:45)
[2018-09-08 19:57] VITALS: BP 128/72; PULSE 80
== END 2018-09-08 20:02 | disposition home or self-care (01) ==
LOC: ED 18:41
DX: J02.0 Streptococcal pharyngitis (principal)
CPT/HCPCS: 96372; 99284; J0696; A9270-GY

== ENCOUNTER 2019-08-09 06:17 | Day surgery (SDC) | payer OTHER ==
[2019-08-09] MEDS ORDERED: ASTRINGYN 8 GM TP ONE (06:27)
[2019-08-09] MEDS ORDERED: XYLOCAINE 1% HCL 20 ML MDV ONE (06:27)
[2019-08-09] MEDS ORDERED: Lactated Ringers 1,000 ML IV SCH (07:00)
[2019-08-09] MEDS ORDERED: DIPRIVAN 200 MG/20 ML IV ONE (08:14)
[2019-08-09] MEDS ORDERED: Versed 2 MG/2 ML Injection ONE (08:14)
[2019-08-09] MEDS ORDERED: SUBLIMAZE 100 MCG/2 ML ONE (08:14)
[2019-08-09] MEDS ORDERED: Decadron 4 MG INJ ONE (08:17)
[2019-08-09] MEDS ORDERED: Zofran 4 MG/2 ML VIAL ONE (08:17)
[2019-08-09] MEDS ORDERED: Xylocaine-Mpf 2% 5 Ml Vial ONE (08:18)
[2019-08-09] MEDS ORDERED: TORAdol 30 mg Injection ONE (09:06)
[2019-08-09 09:47] VITALS: BP 126/75; PULSE 76; O2SAT 100
--- NOTE | 2019-08-10 08:26 | OP ---
SURGERY DATE/TIME: 08/09/2019819 PREOPERATIVE DIAGNOSIS: Severe cervical dysplasia. POSTOPERATIVE DIAGNOSIS: Severe cervical dysplasia. PROCEDURE: Colposcopically-directed LEEP procedure. SURGEON: Earl Garcia D.O. CELL PLASTERER: technical manager [employer]. ANESTHESIA: General. ESTIMATED BLOOD LOSS: Minimal. COMPLICATIONS: None. INDICATIONS: The risks, benefits, indications and alternatives of the procedure were reviewed with the patient prior to procedure. The patient understood the risk of infection, bleeding, bowel injury, bladder injury, ureteral injury, uterine perforation, incompetence cervix, anorgasmia, decreased sex drive and diminished orgasms associated with this procedure. However desires to have this surgery as a possible need to alleviate her current medical condition. DESCRIPTION OF PROCEDURE AND FINDINGS: At this point the patient is taken to the operating room, given general sedation, placed in dorsal lithotomy position. Prepped and draped in the usual sterile fashion. A coated speculum is then placed in the patient's vagina and the cervix is then injected circumferentially with 1% lidocaine with epinephrine. From this point the loop instrument was then used under colposcopic guidance with a right to left motion and a depth of 7 to 8 mm of ectocervical tissue was excised without complication. An additional 2 to 3 mm of endocervical tissue was excised in a similar fashion in right to left motion. Hemostasis was obtained by placing the loop photoresist contact printer ball on the surface of the cervix. At this point there was no bleeding that was noted from her cervix. From this point all instruments were then removed from the patient's vaginal region. The patient was then taken out of the dorsal lithotomy position, was taken out of anesthesia and was then taken to the recovery room in stable condition. All instruments and laps were accounted for x2.
== END 2019-08-09 09:55 | disposition home or self-care (01) ==
LOC: SDC 06:17
PROVIDERS: ATTEND Obstetrics & Gynecology
DX: D06.9 Carcinoma in situ of cervix, unspecified (principal)
CPT/HCPCS: 84703; 88305; J1100; J1885; J2250; J2405; J2704; J3010; A9270-GY

== ENCOUNTER 2020-04-07 10:14 | Emergency (ER) | payer OTHER ==
[2020-04-07 10:30] VITALS: O2SAT 98
--- NOTE | 2020-04-07 10:39 | ERPHSYRPT ---
- History of Present Illness Time Seen by Provider: 04/07/20 10:16 Source: patient Exam Limitations: no limitations Patient Subjective Stated Complaint: flank pain Triage Nursing Assessment: pt to ED c/o L sided flank pain and cervical pain rates 10/10 x few days. states she does have hx freq UTIs and kidney stones. had 6 mm stone removed from R kidney few years ago and stent placed. no issues on R side since. extreme pain and burning with urination and reports some constipation. Physician History: Left flank pain. 2 weeks. History of kidney stones. Patient also has lower abdominal pain. Patient has no falls no trauma. No red flag symptoms for back pain today. Location: left flank Quality: sharp Radiation: none Severity: moderate Duration: 2 weeks Timing: gradual Modifying factors/associated signs and symptoms: previous UTIs and kidney stones Patient has no red flag symptoms for back pain today: No Loss of control of the bowel or bladder. No weakness or numbness in a leg or arm. No foot drop, disturbed gait. No high fever, no IV drug use. No saddle anaesthesia (numbness of the anus, perineum or genitals). No trauma or h/o cancer Timing/Duration: week(s) (2 weeks) Severity: moderate Modifying Factors: Improves With: other (worse with movement ) Associated Symptoms: nausea, abdominal pain Allergies/Adverse Reactions: hydrocodone bitartrate [From Vicodin] Allergy (Verified 04/07/20 10:30) Home Medications: Citalopram Hydrobromide [Celexa] 10 mg PO DAILY 07/13/19 [History] Hx Tetanus, Diphtheria Vaccination/Date Given: Yes Hx Influenza Vaccination/Date Given: No Hx Pneumococcal Vaccination/Date Given: Yes Travel Risk - International Travel Have you traveled outside of the country in past 3 weeks: No - Coronavirus Screening Are you exhibiting any of the following symptoms?: No Close contact with a COVID-19 positive Pt in past 14-21 Days: No - Review of Systems Constitutional: No Fever, No Chills Eyes: No Symptoms Ears, Nose, & Throat: No Symptoms Respiratory: No Cough, No Dyspnea Cardiac: No Chest Pain, No Edema, No Syncope Abdominal/Gastrointestinal: Other (left flank pain), No Abdominal Pain, No Nausea, No Vomiting, No Diarrhea Genitourinary Symptoms: No Dysuria Musculoskeletal: No Back Pain, No Neck Pain Skin: No Rash Neurological: No Dizziness, No Focal Weakness, No Sensory Changes Psychological: No Symptoms Endocrine: No Symptoms All Other Systems: Reviewed and Negative - Past Medical History Pertinent Past Medical History: Yes Neurological History: No Pertinent History ENT History: No Pertinent History Cardiac History: No Pertinent History Respiratory History: No Pertinent History Endocrine Medical History: No Pertinent History Musculoskeletal History: No Pertinent History GI Medical History: Hemorrhoids History: Other Psycho-Social History: Anxiety Female Reproductive Disorders: No Pertinent History Other Medical History: OCC PANIC ATTACK REGARDING UNKNOWN THINGS. STENT IN ureter and removed,kindey stones, multiple uti's - Past Surgical History Past Surgical History: Yes Neuro Surgical History: No Pertinent History Cardiac: No Pertinent History Respiratory: No Pertinent History Gastrointestinal: No Pertinent History Genitourinary: Other Musculoskeletal: Orthopedic Surgery Female Surgical History: Tubal Ligation Other Surgical History: rt hand surg,.kidney stone removed - Social History Smoking Status: Current every day smoker How long have you smoked: 14 Exposure to second hand smoke: Yes Drug Use: none Patient Lives Alone: No - Female History Hx Now: No (tubal) - Nursing Vital Signs Nursing Vital Signs: Initial Vital Signs Temperature 97.1 F 04/07/20 10:22 Pulse Rate 96 H 04/07/20 10:22 Respiratory Rate 18 04/07/20 10:22 Blood Pressure 131/81 04/07/20 10:22 O2 Sat by Pulse Oximetry 98 04/07/20 10:22 Pain Scale Pain Intensity 5 - Physical Exam General Appearance: no apparent distress, alert Eye Exam: PERRL/EOMI, eyes nml inspection Ears, Nose, Throat Exam: normal ENT inspection, TMs normal, pharynx normal, moist mucous membranes Neck Exam: normal inspection, non-tender, supple, full range of motion Respiratory Exam: normal breath sounds, lungs clear, No respiratory distress Cardiovascular Exam: regular rate/rhythm, normal heart sounds, normal peripheral pulses Gastrointestinal/Abdomen Exam: soft, normal bowel sounds, other (Left flank tenderness), No tenderness, No mass Back Exam: normal inspection, normal range of motion, No CVA tenderness, No vertebral tenderness Extremity Exam: normal inspection, normal range of motion, pelvis stable Neurologic Exam: alert, oriented x 3, cooperative, normal mood/affect, nml cerebellar function, nml station & gait, sensation nml, No motor deficits Skin Exam: normal color, warm, dry, No rash Lymphatic Exam: No adenopathy SpO2: 98 - Course Nursing assessment & vital signs reviewed: Yes EKG Interpreted by Me: Sinus Rhythm Ordered Tests: Active Orders 24 hr Category Date Time Status EKG-ER Only STAT Care 04/07/20 10:35 Active IV Insertion STAT Care 04/07/20 10:33 Active ABDOMEN AND PELVIS W CONTRAST [CT] Stat Exams 04/07/20 10:34 Taken CBC W DIFF Stat Lab 04/07/20 10:33 Completed CMP Stat Lab 04/07/20 10:38 Completed CULTURE,URINE Stat Lab 04/07/20 10:38 Received HCG,QUALITATIVE URINE Stat Lab 04/07/20 10:38 Completed LIPASE Stat Lab 04/07/20 10:38 Completed UA W/RFX UR CULTURE Stat Lab 04/07/20 10:38 Completed Medication Summary Discontinued Medications Generic Name Dose Route Start Last Admin Trade Name Freq PRN Reason Stop Dose Admin Ketorolac Tromethamine 30 mg 04/07/20 11:42 04/07/20 11:46 Toradol 30 Mg Injection IV 04/07/20 11:43 30 mg STAT ONE Administration Ketorolac Tromethamine Confirm 04/07/20 11:44 Toradol 30 Mg Injection Administered 04/07/20 11:45 Dose 30 mg .ROUTE .STK-MED ONE Ondansetron HCl 8 mg 04/07/20 11:42 04/07/20 11:46 Zofran 4 Mg/2 Ml Vial IV 04/07/20 11:43 8 mg STAT ONE Administration Ondansetron HCl Confirm 04/07/20 11:44 Zofran 4 Mg/2 Ml Vial Administered 04/07/20 11:45 Dose 4 mg .ROUTE .STK-MED ONE Ondansetron HCl Confirm 04/07/20 11:45 Zofran 4 Mg/2 Ml Vial Administered 04/07/20 11:46 Dose 4 mg .ROUTE .STK-MED ONE Lab/Rad Data: Laboratory Result Diagrams 04/07/20 10:33 04/07/20 10:38 Laboratory Results 04/07/20 04/07/20 04/07/20 Range/Units 10:38 10:38 10:38 WBC (4.0-10.5) K/mm3 RBC (4.1-5.4) M/mm3 Hgb (12.0-16.0) gm/dl Hct (35-47) % MCV (78-100) fl MCH (26-32) pg MCHC (32-36) g/dl RDW (11.5-14.0) % Plt Count (150-450) K/mm3 MPV (7.5-11.0) fl Gran % (36.0-66.0) % Eos # (Auto) (0-0.5) Absolute Lymphs (auto) (1.0-4.6) Absolute Monos (auto) (0.0-1.3) Lymphocytes % (24.0-44.0) % Monocytes % (0.0-12.0) % Eosinophils % (0.00-5.0) % Basophils % (0.0-0.4) % Absolute Granulocytes (1.4-6.9) Basophils # (0-0.4) Sodium 137 (137-145) mmol/L Potassium 3.7 (3.5-5.1) mmol/L Chloride 107 (98-107) mmol/L Carbon Dioxide 23 (22-30) mmol/L Anion Gap 10.7 (5-15) MEQ/L BUN 8 (7-17) mg/dL Creatinine 0.66 (0.52-1.04) mg/dL Estimated GFR > 60.0 ML/MIN Glucose 114 H (74-106) mg/dL Calcium 9.5 (8.4-10.2) mg/dL Total Bilirubin 0.40 (0.2-1.3) mg/dL AST 24 (14-36) U/L ALT 21 (0-35) U/L Alkaline Phosphatase 63 (38-126) U/L Serum Total Protein 8.0 (6.3-8.2) g/dL Albumin 4.4 (3.5-5.0) g/dL Lipase 43 (23-300) U/L Urine Color YELLOW (YELLOW) Urine Appearance CLOUDY (CLEAR) Urine pH 6.0 (5-6) Ur Specific [place] 1.015 (1.005-1.025) Urine Protein 30 (Negative) Urine Ketones NEGATIVE (NEGATIVE) Urine Blood LARGE (0-5) Edilberto/ul Urine Nitrite NEGATIVE (NEGATIVE) Urine Bilirubin NEGATIVE (NEGATIVE) Urine Urobilinogen NEGATIVE (0-1) mg/dL Ur Leukocyte Esterase TRACE (NEGATIVE) Urine WBC (Auto) 11-15 (0-5) /HPF Urine RBC (Auto) >101 (0-2) /HPF U Epithel Cells (Auto) MODERATE (FEW) /HPF Urine Bacteria (Auto) MODERATE (NEGATIVE) /HPF Urine Mucus (Auto) SLIGHT (NEGATIVE) /HPF Urine Culture Reflexed ORDERED SEPARATELY (NO) Urine Glucose NEGATIVE (NEGATIVE) mg/dL Urine HCG, Qual NEGATIVE (Negative) 04/07/20 Range/Units 10:33 WBC 8.5 (4.0-10.5) K/mm3 RBC 4.43 (4.1-5.4) M/mm3 Hgb 11.4 L (12.0-16.0) gm/dl Hct 37.0 (35-47) % MCV 83.5 (78-100) fl MCH 25.7 L (26-32) pg MCHC 30.8 L (32-36) g/dl RDW 16.7 H (11.5-14.0) % Plt Count 394 (150-450) K/mm3 MPV 9.5 (7.5-11.0) fl Gran % 49.9 (36.0-66.0) % Eos # (Auto) 0.12 (0-0.5) Absolute Lymphs (auto) 3.36 (1.0-4.6) Absolute Monos (auto) 0.75 (0.0-1.3) Lymphocytes % 39.3 (24.0-44.0) % Monocytes % 8.8 (0.0-12.0) % Eosinophils % 1.4 (0.00-5.0) % Basophils % 0.6 (0.0-0.4) % Absolute Granulocytes 4.26 (1.4-6.9) Basophils # 0.05 (0-0.4) Sodium (137-145) mmol/L Potassium (3.5-5.1) mmol/L Chloride (98-107) mmol/L Carbon Dioxide (22-30) mmol/L Anion Gap (5-15) MEQ/L BUN (7-17) mg/dL Creatinine (0.52-1.04) mg/dL Estimated GFR ML/MIN Glucose (74-106) mg/dL Calcium (8.4-10.2) mg/dL Total Bilirubin (0.2-1.3) mg/dL AST (14-36) U/L ALT (0-35) U/L Alkaline Phosphatase (38-126) U/L Serum Total Protein (6.3-8.2) g/dL Albumin (3.5-5.0) g/dL Lipase (23-300) U/L Urine Color (YELLOW) Urine Appearance (CLEAR) Urine pH (5-6) Ur Specific [place] (1.005-1.025) Urine Protein (Negative) Urine Ketones (NEGATIVE) Urine Blood (0-5) Edilberto/ul Urine Nitrite (NEGATIVE) Urine Bilirubin (NEGATIVE) Urine Urobilinogen (0-1) mg/dL Ur Leukocyte Esterase (NEGATIVE) Urine WBC (Auto) (0-5) /HPF Urine RBC (Auto) (0-2) /HPF U Epithel Cells (Auto) (FEW) /HPF Urine Bacteria (Auto) (NEGATIVE) /HPF Urine Mucus (Auto) (NEGATIVE) /HPF Urine Culture Reflexed (NO) Urine Glucose (NEGATIVE) mg/dL Urine HCG, Qual (Negative) - Progress Progress: improved Progress Note: 04/07/20 10:39 differential diagnosis includes kidney stone, compression fracture, infection, UTI, triple AAA - basic labs including: CBC, lipase, CMP, UA - insert IV for fluids, pain meds, nausea control - consider imaging: CT ab/pelvis 04/07/20 12:22 Patient feeling improved with medication here. Patient has a left 4 mm ureter stone. This would explain her pain. No elevation in creatinine, labs otherwise look good. Patient does have some moderate bacteria in her urine. However, she has no leukocytes or nitrites. Therefore less likely to be a UTI. Either way, will send for urine culture today. She will build to follow-up on these results on Thursday. Should patient feel any symptoms such as fever, chills, nausea, vomiting. She was encouraged to return here for potential infected renal stone. At this point time patient is feeling improved. Will discharge home. Return here for new or changing symptoms. - Departure Departure Disposition: Home Clinical Impression: Left renal stone Condition: Good Critical Care Time: No Referrals: DOREEN STEVENS MD [Primary Care Provider] - Instructions: Kidney Stones (DC) Additional Instructions: Follow up with PCP on [place] for urine culture results and abdominal reexam. Get referral to urology. Prescriptions: Hydrocodone/APAP 5-325 Tab^^^ [[place] 5-325 Tablet^^^] 2 tab PO Q4HPRN PRN #10 tablet MDD 6 PRN Reason: Pain Ondansetron ODT 4 MG [Zofran Odt 4 mg] 4 mg PO Q6H PRN PRN #10 tab.rapdis PRN Reason: Vomiting
[2020-04-07 10:42] LABS: Absolute Neutrophil Ct (ANC) 4.26 (1.4-6.9); BASOPHIL % 0.6 % (0.0-0.4); Basophil (Absolute #) 0.05 (0-0.4); Eosinophil % 1.4 % (0.00-5.0); Eosinophil (Absolute #) 0.12 (0-0.5); Hemoglobin 11.4 gm/dl (12.0-16.0); Lymphocyte (Absolute #) 3.36 (1.0-4.6); Lymphocytes % 39.3 % (24.0-44.0); Mean Cell Volume 83.5 fl (78-100); Mean Corpuscular Hemoglobin 25.7 pg (26-32); Mean Corpuscular Hgb Concent. 30.8 g/dl (32-36); Mean Platelet Volume 9.5 fl (7.5-11.0); Monocyte (Absolute #) 0.75 (0.0-1.3); Monocytes % 8.8 % (0.0-12.0); Neutrophil % 49.9 % (36.0-66.0); Platelet Count 394 K/mm3 (150-450); Red Blood Count 4.43 M/mm3 (4.1-5.4); Red Cell Distribution Width 16.7 % (11.5-14.0); White Blood Count 8.5 K/mm3 (4.0-10.5)
[2020-04-07 10:51] LABS: ALBUMIN 4.4 g/dL (3.5-5.0); ALKALINE PHOSPHATASE 63 U/L (38-126); ANION GAP 10.7 MEQ/L (5-15); BLOOD UREA NITROGEN 8 mg/dL (7-17); CHLORIDE 107 mmol/L (98-107); Calcium 9.5 mg/dL (8.4-10.2); Carbon Dioxide 23 mmol/L (22-30); Creatinine 1 0.66 mg/dL (0.52-1.04); EST GLOMERULAR FILTRATION RATE > 60.0 ML/MIN; Glucose 114 mg/dL (74-106); LIPASE 43 U/L (23-300); Potassium 3.7 mmol/L (3.5-5.1); SGOT/AST 24 U/L (14-36); SGPT/ALT 21 U/L (0-35); SODIUM 137 mmol/L (137-145)
[2020-04-07 10:52] LABS: Appearance CLOUDY (CLEAR); Bacteria MODERATE /HPF (NEGATIVE); Bilirubin NEGATIVE (NEGATIVE); Blood LARGE Ery/ul (0-5); Epithelial Cells MODERATE /HPF (FEW); Glucose NEGATIVE (NEGATIVE); Ketones NEGATIVE (NEGATIVE); Leukocyte Esterase TRACE (NEGATIVE); Mucus SLIGHT /HPF (NEGATIVE); Nitrite NEGATIVE (NEGATIVE); Protein,Urine Dip 30 (Negative); Specific Gravity 1.015 (1.005-1.025); Urobilinogen NEGATIVE mg/dL (0-1)
[2020-04-07 10:53] LABS: RBC >101 /HPF (0-2)
[2020-04-07] MEDS ORDERED: TORAdol 30 mg Injection IV ONE (11:42)
[2020-04-07] MEDS ORDERED: Zofran 4 MG/2 ML VIAL IV ONE (11:42)
[2020-04-07] MEDS ORDERED: Zofran 4 MG/2 ML VIAL ONE ×2 (11:44→11:45)
[2020-04-07] MEDS ORDERED: TORAdol 30 mg Injection ONE (11:44)
[2020-04-07 12:18] VITALS: BP 110/74; PULSE 81
--- NOTE | 2020-04-07 16:02 | XRAY ---
Indication: Left abdomen pain 2 weeks. Multiple contiguous axial images obtained through the abdomen and pelvis using 80 cc of Isovue-370 contrast only. Comparison: CT renal stone study March 04, 2014. Lung bases clear with stable right lower lobe calcified granuloma. Heart is not enlarged. Stable distal paraesophageal calcified nodes. Noncontrasted stomach and bowel loops appear nonobstructed. Normal appendix. No free fluid/air. New 4 mm distal left ureter calculus 1-2 cm proximal to the UVJ. Proximal left ureter is prominent up to 9 mm along with mild hydronephrosis consistent with obstructive uropathy. No perinephric fluid. Left kidney again demonstrates a few punctate calculi. Remaining liver, gallbladder, pancreas, spleen, adrenal glands, right kidney, right ureter, bladder, uterus, and aorta appear unremarkable. No pathologic retroperitoneal lymphadenopathy. Osseous structures intact. Impression: 1. New 4 mm obstructing distal left ureteral calculus as detailed. Again multiple left renal microcalculi. 2. Again old granulomatous disease. Comment: Preliminary interpretation was made by [facility]. No critical discrepancy.
== END 2020-04-07 12:27 | disposition home or self-care (01) ==
LOC: ED 10:14
DX: N20.0 Calculus of kidney (principal); R10.30 Lower abdominal pain, unspecified
CPT/HCPCS: 36000; 36415; 74177; 80053; 81001; 83690; 84703; 85025; 87077; 87086; 87186; 93005; 96374; 96375; 99284; J1885; J2405

== ENCOUNTER 2021-10-05 16:26 | Emergency (ER) | payer OTHER ==
[2021-10-05 17:36] LABS: Appearance CLEAR (CLEAR); Bilirubin NEGATIVE (NEGATIVE); Dipstick done @ ? MAIN LAB; Glucose NEGATIVE (NEGATIVE); Ketones NEGATIVE (NEGATIVE); Nitrite NEGATIVE (NEGATIVE); Protein,Urine Dip NEGATIVE (Negative); RBC NEGATIVE Ery/ul (0-5); Specific Gravity >=1.030 (1.005-1.025); Urobilinogen 0.2 mg/dL (0-1)
[2021-10-05 17:38] LABS: Bacteria MANY /HPF (NEGATIVE); Mucus SLIGHT /HPF (NEGATIVE)
[2021-10-05 17:39] LABS: Urine Cultured Indicated? YES
[2021-10-05 17:54] LABS: Absolute Neutrophil Ct (ANC) 4.81 (1.4-6.9); Basophil (Absolute #) 0.04 (0-0.4); Eosinophil % 1.3 % (0.00-5.0); Eosinophil (Absolute #) 0.11 (0-0.5); Hematocrit 36.2 % (35-47); Hemoglobin 11.9 gm/dl (12.0-16.0); Lymphocyte (Absolute #) 3.31 (1.0-4.6); Lymphocytes % 37.6 % (24.0-44.0); Mean Cell Volume 87.9 fl (78-100); Mean Corpuscular Hemoglobin 28.9 pg (26-32); Mean Corpuscular Hgb Concent. 32.9 g/dl (32-36); Mean Platelet Volume 9.1 fl (7.5-11.0); Monocyte (Absolute #) 0.53 (0.0-1.3); Neutrophil % 54.6 % (36.0-66.0); Platelet Count 395 K/mm3 (150-450); Red Blood Count 4.12 M/mm3 (4.1-5.4); Red Cell Distribution Width 13.8 % (11.5-14.0); White Blood Count 8.8 K/mm3 (4.0-10.5)
[2021-10-05 18:16] LABS: ACETAMINOPHEN < 10 ug/ml (10-30); ALBUMIN 3.9 g/dL (3.5-5.0); ALKALINE PHOSPHATASE 51 U/L (38-126); ANION GAP 12.4 MEQ/L (5-15); BLOOD UREA NITROGEN 12 mg/dL (7-17); CHLORIDE 110 mmol/L (98-107); Calcium 9.3 mg/dL (8.4-10.2); Carbon Dioxide 22 mmol/L (22-30); Creatinine 1 0.64 mg/dL (0.52-1.04); EST GLOMERULAR FILTRATION RATE > 60.0 ML/MIN; ETHYL ALCOHOL < 10 mg/dL (0-10); Glucose 77 mg/dL (74-106); Potassium 4.1 mmol/L (3.5-5.1); SALICYLATE < 1.0 mg/dL (2-20); SGOT/AST 21 U/L (14-36); SGPT/ALT 14 U/L (0-35); SODIUM 140 mmol/L (137-145); Total Protein 6.8 g/dL (6.3-8.2)
[2021-10-05 21:21] VITALS: O2SAT 97
--- NOTE | 2021-10-05 22:24 | ERPHSYRPT ---
- History of Present Illness Time Seen by Provider: 10/05/21 17:17 Source: patient Exam Limitations: no limitations Patient Subjective Stated Complaint: Behavioral problems- suicidal ideation Triage Nursing Assessment: Patient ambulated back to ED per self accompanied per police. Patient A+O x3. Patient's skin pink, warm and dry. Patient states she is depressed. She got into an argument with her sister today and her sister told her to just end her life and noone cared about her. Patient put a post on facebook she wanted to end it all. The police were called by an unknown person and did a well fair check on patient. Patient denies having a plan, but feels depressed. Patient states recently her ex took her children out of state to [place] and she is not able to see them or talk to them. Patient denies pain or discomfort. Physician History: 30-year-old with a history of anxiety depression, tobacco abuse, previous history of substance abuse went through rehab, currently sober for more than 6 months is brought in the ER by PD after she posted some suicidal comment on social media. Patient reports I just have been under a lot of stress as her ex took her kids to [place] without letting her know and she cannot see them. This is really frustrating for her and adding to her stress. Then her ex called her sister who wanted her to commit suicide. She denies any suicidal or homicidal ideations and said that she would never like to do suicide and never had tried in the past. Reports that she has a job to start which she has been waiting for long time. Patient states that she dated only because she was very angry and did not know how to take off the stress but did not have any means to do it and deleted the post quickly. Timing/Duration: gradual onset Severity of Symptoms-Max: moderate Severity of Symptoms-Current: mild Context related to: living circumstances Suicidal thoughts: gesture Associated Symptoms: depressed, frustrated Previous symptoms: no prior history Allergies/Adverse Reactions: hydrocodone bitartrate [From Vicodin] Allergy (Verified 10/05/21 17:54) Home Medications: Citalopram Hydrobromide [Celexa] 10 mg PO DAILY 07/13/19 [History] Bupropion HCl Xl 150 mg [Wellbutrin XL 150 MG] 1 tab PO DAILY 10/05/21 [History] Hx Tetanus, Diphtheria Vaccination/Date Given: Yes Hx Influenza Vaccination/Date Given: No Hx Pneumococcal Vaccination/Date Given: No Immunizations Up to Date: Yes Travel Risk - International Travel Have you traveled outside of the country in past 3 weeks: No - Coronavirus Screening Are you exhibiting any of the following symptoms?: No Close contact with a COVID-19 positive Pt in past 14-21 Days: No - Vaccine Status Have you recieved a Covid-19 vaccination: No - Past Medical History Pertinent Past Medical History: Yes Neurological History: No Pertinent History ENT History: No Pertinent History Cardiac History: No Pertinent History Respiratory History: No Pertinent History Endocrine Medical History: No Pertinent History Musculoskeletal History: No Pertinent History GI Medical History: Hemorrhoids History: Other Psycho-Social History: Anxiety, Attention Deficit Disorder Female Reproductive Disorders: No Pertinent History Other Medical History: OCC PANIC ATTACK REGARDING UNKNOWN THINGS. STENT IN ureter and removed,kindey stones, multiple uti's - Past Surgical History Past Surgical History: Yes Neuro Surgical History: No Pertinent History Cardiac: No Pertinent History Respiratory: No Pertinent History Gastrointestinal: No Pertinent History Genitourinary: Other Musculoskeletal: Orthopedic Surgery Female Surgical History: Tubal Ligation Other Surgical History: rt hand surg,.kidney stone removed - Social History Smoking Status: Current every day smoker How long have you smoked: 14 Exposure to second hand smoke: No Drug Use: none Patient Lives Alone: No - Female History Hx Last Menstrual Period: depo Hx Now: No - Review of Systems Constitutional: No Symptoms Eyes: No Symptoms Ears, Nose, & Throat: No Symptoms Respiratory: No Symptoms Cardiac: No Symptoms Abdominal/Gastrointestinal: No Symptoms Genitourinary Symptoms: No Symptoms Musculoskeletal: No Symptoms Skin: No Symptoms Neurological: No Symptoms Psychological: Anxiety, Depression Endocrine: No Symptoms Hematologic/Lymphatic: No Symptoms Immunological/Allergic: No Symptoms - Nursing Vital Signs Nursing Vital Signs: Initial Vital Signs Temperature 98.0 F 10/05/21 17:55 Pulse Rate 70 10/05/21 17:55 Respiratory Rate 18 10/05/21 17:55 Blood Pressure 123/80 10/05/21 17:55 O2 Sat by Pulse Oximetry 97 10/05/21 17:55 Pain Scale Pain Intensity 0 - Physical Exam General Appearance: no apparent distress, alert, anxiety Eyes, Ears, Nose, Throat Exam: normal ENT inspection, TMs normal, pharynx normal, moist mucous membranes Neck Exam: normal inspection, non-tender, supple, full range of motion Respiratory Exam: normal breath sounds, lungs clear Cardiovascular Exam: regular rate/rhythm, normal heart sounds Gastrointestinal/Abdominal Exam: soft, normal bowel sounds, No tenderness Extremities Exam: normal inspection, normal range of motion Current Suicidality: denies suicide plan Neurological Exam: alert, calm, director orange II-XII nml as tested, oriented x 3, No normal mood/affect Appearance: appropriate appearance, appropriate insight, neat, no memory impairment, denies illness Behavior/Eye Contact/Speech: alert & cooperative, cooperative, good eye contact, normal speech Thoughts/Hallucinations: normal thought pattern, no apparent hallucination Skin Exam: normal color SpO2 Interpretation: normal SpO2: 97 O2 Delivery: Room Air Ordered Tests: Active Orders 24 hr Category Date Time Status Tele-Health Consult ROUTINE Cons 10/05/21 22:41 Active ACETAMINOPHEN Stat Lab 10/05/21 17:51 Completed CBC W DIFF Stat Lab 10/05/21 17:51 Completed CMP Stat Lab 10/05/21 17:51 Completed CULTURE,URINE Stat Lab 10/05/21 17:28 Received ETHYL ALCOHOL Stat Lab 10/05/21 17:51 Completed HCG,QUALITATIVE URINE Stat Lab 10/05/21 17:28 Completed SALICYLATE Stat Lab 10/05/21 17:51 Completed UA W/RFX CULTURE Stat Lab 10/05/21 17:28 Completed Lab/Rad Data: Laboratory Result Diagrams 10/05/21 17:51 10/05/21 17:51 Laboratory Results 10/05/21 10/05/21 10/05/21 Range/Units 17:51 17:51 17:28 WBC 8.8 (4.0-10.5) K/mm3 RBC 4.12 (4.1-5.4) M/mm3 Hgb 11.9 L (12.0-16.0) gm/dl Hct 36.2 (35-47) % MCV 87.9 (78-100) fl MCH 28.9 (26-32) pg MCHC 32.9 (32-36) g/dl RDW 13.8 (11.5-14.0) % Plt Count 395 (150-450) K/mm3 MPV 9.1 (7.5-11.0) fl Gran % 54.6 (36.0-66.0) % Eos # (Auto) 0.11 (0-0.5) Absolute Lymphs (auto) 3.31 (1.0-4.6) Absolute Monos (auto) 0.53 (0.0-1.3) Lymphocytes % 37.6 (24.0-44.0) % Monocytes % 6.0 (0.0-12.0) % Eosinophils % 1.3 (0.00-5.0) % Basophils % 0.5 (0.0-0.4) % Absolute Granulocytes 4.81 (1.4-6.9) Basophils # 0.04 (0-0.4) Sodium 140 (137-145) mmol/L Potassium 4.1 (3.5-5.1) mmol/L Chloride 110 H (98-107) mmol/L Carbon Dioxide 22 (22-30) mmol/L Anion Gap 12.4 (5-15) MEQ/L BUN 12 (7-17) mg/dL Creatinine 0.64 (0.52-1.04) mg/dL Estimated GFR > 60.0 ML/MIN Glucose 77 (74-106) mg/dL Calcium 9.3 (8.4-10.2) mg/dL Total Bilirubin 0.70 (0.2-1.3) mg/dL AST 21 (14-36) U/L ALT 14 (0-35) U/L Alkaline Phosphatase 51 (38-126) U/L Serum Total Protein 6.8 (6.3-8.2) g/dL Albumin 3.9 (3.5-5.0) g/dL Urinalys Dipstick Clnc MAIN LAB Urine Color YELLOW (YELLOW) Urine Appearance CLEAR (CLEAR) Urine pH 7.0 (5-6) Ur Specific [place] >=1.030 (1.005-1.025) POC Urine Protein Conf NEGATIVE (Negative) Urine Ketones NEGATIVE (NEGATIVE) Urine Nitrite NEGATIVE (NEGATIVE) Urine Bilirubin NEGATIVE (NEGATIVE) Urine Urobilinogen 0.2 (0-1) mg/dL Urine Leukocytes NEGATIVE (NEGATIVE) Urine WBC (Auto) 11-15 (0-5) /HPF Urine RBC (Auto) NONE (0-2) /HPF U Epithel Cells (Auto) NONE (FEW) /HPF Urine Bacteria (Auto) MANY (NEGATIVE) /HPF Urine RBC NEGATIVE (0-5) Edilberto/ul Urine Mucus (Auto) SLIGHT (NEGATIVE) /HPF Ur Culture Indicated? YES Urine Glucose NEGATIVE (NEGATIVE) mg/dL Urine HCG, Qual (Negative) Salicylates < 1.0 L (2-20) mg/dL Acetaminophen < 10 L (10-30) ug/ml Ethyl Alcohol < 10 (0-10) mg/dL 10/05/21 Range/Units 17:28 WBC (4.0-10.5) K/mm3 RBC (4.1-5.4) M/mm3 Hgb (12.0-16.0) gm/dl Hct (35-47) % MCV (78-100) fl MCH (26-32) pg MCHC (32-36) g/dl RDW (11.5-14.0) % Plt Count (150-450) K/mm3 MPV (7.5-11.0) fl Gran % (36.0-66.0) % Eos # (Auto) (0-0.5) Absolute Lymphs (auto) (1.0-4.6) Absolute Monos (auto) (0.0-1.3) Lymphocytes % (24.0-44.0) % Monocytes % (0.0-12.0) % Eosinophils % (0.00-5.0) % Basophils % (0.0-0.4) % Absolute Granulocytes (1.4-6.9) Basophils # (0-0.4) Sodium (137-145) mmol/L Potassium (3.5-5.1) mmol/L Chloride (98-107) mmol/L Carbon Dioxide (22-30) mmol/L Anion Gap (5-15) MEQ/L BUN (7-17) mg/dL Creatinine (0.52-1.04) mg/dL Estimated GFR ML/MIN Glucose (74-106) mg/dL Calcium (8.4-10.2) mg/dL Total Bilirubin (0.2-1.3) mg/dL AST (14-36) U/L ALT (0-35) U/L Alkaline Phosphatase (38-126) U/L Serum Total Protein (6.3-8.2) g/dL Albumin (3.5-5.0) g/dL Urinalys Dipstick Clnc Urine Color (YELLOW) Urine Appearance (CLEAR) Urine pH (5-6) Ur Specific [place] (1.005-1.025) POC Urine Protein Conf (Negative) Urine Ketones (NEGATIVE) Urine Nitrite (NEGATIVE) Urine Bilirubin (NEGATIVE) Urine Urobilinogen (0-1) mg/dL Urine Leukocytes (NEGATIVE) Urine WBC (Auto) (0-5) /HPF Urine RBC (Auto) (0-2) /HPF U Epithel Cells (Auto) (FEW) /HPF Urine Bacteria (Auto) (NEGATIVE) /HPF Urine RBC (0-5) Edilberto/ul Urine Mucus (Auto) (NEGATIVE) /HPF Ur Culture Indicated? Urine Glucose (NEGATIVE) mg/dL Urine HCG, Qual NEGATIVE (Negative) Salicylates (2-20) mg/dL Acetaminophen (10-30) ug/ml Ethyl Alcohol (0-10) mg/dL - Progress Progress: improved Progress Note: 10/05/21 22:21 erghfg 10/06/21 she is medically cleared, [facility] has evaluated her through tele psych and do not think patient is an imminent threat to self or anyone else. She is hopeful about future and she loves her kids and wants to get them back. She is willing to get help and outpatient therapy. She will follow-up outpatient with [facility]. I have asked her multiple times in different ways and she denies any suicidal thoughts or plans. She signed a safety contract and is being discharged with outpatient follow-up. Counseled pt/family regarding: lab results, diagnosis, need for follow-up, smoking cessation - Departure Departure Disposition: Home Clinical Impression: Depressive disorder, Anxiety Condition: Stable Critical Care Time: No Referrals: SARA WHITLEY NP [Primary Care Provider] - Follow up/PCP as directed (2 days for re evaluation ) Instructions: Depression, Adult (DC), Suicide Prevention Additional Instructions: Follow-up with [facility] and primary care as recommended early next week. Return to ER/call 911 if having any suicidal/homicidal ideation/thoughts etc.
[2021-10-05 22:37] VITALS: BP 101/54; PULSE 74
== END 2021-10-05 22:35 | disposition home or self-care (01) ==
LOC: ED 16:26
DX: F32.A Depression, unspecified (principal); F41.9 Anxiety disorder, unspecified; Z63.5 Disruption of family by separation and divorce; Z72.0 Tobacco use; Z79.899 Other long term (current) drug therapy
CPT/HCPCS: 36415; 80053; 80307; 81015; 84703; 85025; 87077; 87086; 87186; 99284; G0480

== ENCOUNTER 2021-10-25 23:10 | Emergency (ER) | payer OTHER ==
[2021-10-25] MEDS ORDERED: TORAdol 30 mg Injection IV ONE (23:42)
[2021-10-25] MEDS ORDERED: Sodium Chloride 0.9% 1000 ML 1,000 ML IV STA (23:42)
--- NOTE | 2021-10-25 23:42 | ERPHSYRPT ---
- History of Present Illness Time Seen by Provider: 10/25/21 23:40 Source: patient Physician History: Patient is a 30-year-old female who presents with a general complaint of body aches. She states that since last night she has been having chills body aches generalized pain dysuria frequency urgency and a severe headache. Is important to note she was just released from rehab and she needs a work excuse. Timing/Duration: yesterday Activites at Onset: none Quality: burning Onset Location: suprapubic, right flank Pain Radiation: suprapubic Severity of Pain-Max: moderate Severity of Pain-Current: moderate Prior abdominal problems: similar symptoms Sexual intercourse history: non-contributory Modifying Factors: Improves With: urinating Associated Symptoms: fever, chills, nausea, vomiting, urinary frequency, loss of bladder control Allergies/Adverse Reactions: hydrocodone bitartrate [From Vicodin] Allergy (Verified 10/25/21 23:45) Home Medications: Citalopram Hydrobromide [Celexa] 10 mg PO DAILY 07/13/19 [History] Bupropion HCl Xl 150 mg [Wellbutrin XL 150 MG] 1 tab PO DAILY 10/05/21 [History] Hx Tetanus, Diphtheria Vaccination/Date Given: Yes Hx Influenza Vaccination/Date Given: No Hx Pneumococcal Vaccination/Date Given: No Travel Risk - Vaccine Status Have you recieved a Covid-19 vaccination: No - Review of Systems Constitutional: Fever, Chills, Night Sweats Eyes: No Symptoms Ears, Nose, & Throat: No Symptoms Respiratory: No Cough, No Dyspnea Cardiac: No Chest Pain, No Edema, No Syncope Abdominal/Gastrointestinal: No Abdominal Pain, No Nausea, No Vomiting, No Diarrhea Genitourinary Symptoms: Dysuria, Frequency, Incontinence, Urgency Musculoskeletal: Arthralgias, Myalgias, No Back Pain, No Neck Pain Skin: No Symptoms, No Rash Neurological: No Symptoms, No Dizziness, No Focal Weakness, No Sensory Changes Psychological: No Symptoms Endocrine: No Symptoms All Other Systems: Reviewed and Negative - Past Medical History Pertinent Past Medical History: Yes Neurological History: No Pertinent History ENT History: No Pertinent History Cardiac History: No Pertinent History Respiratory History: No Pertinent History Endocrine Medical History: No Pertinent History Musculoskeletal History: No Pertinent History GI Medical History: Hemorrhoids History: Other Psycho-Social History: Anxiety, Attention Deficit Disorder Female Reproductive Disorders: No Pertinent History Other Medical History: OCC PANIC ATTACK REGARDING UNKNOWN THINGS. STENT IN ureter and removed,kindey stones, multiple uti's - Past Surgical History Past Surgical History: Yes Neuro Surgical History: No Pertinent History Cardiac: No Pertinent History Respiratory: No Pertinent History Gastrointestinal: No Pertinent History Genitourinary: Other Musculoskeletal: Orthopedic Surgery Female Surgical History: Tubal Ligation Other Surgical History: rt hand surg,.kidney stone removed - Social History Smoking Status: Current every day smoker How long have you smoked: 14 Exposure to second hand smoke: No Drug Use: none Patient Lives Alone: No - Nursing Vital Signs Nursing Vital Signs: Initial Vital Signs Temperature 98.0 F 10/25/21 23:30 Pulse Rate 97 H 10/25/21 23:30 Respiratory Rate 16 10/25/21 23:30 Blood Pressure 107/62 10/25/21 23:30 O2 Sat by Pulse Oximetry 98 10/25/21 23:30 Pain Scale Pain Intensity 8 - Physical Exam General Appearance: mild distress, alert Eye Exam: PERRL/EOMI, eyes nml inspection Ears, Nose, Throat Exam: normal ENT inspection, TMs normal, pharynx normal, moist mucous membranes Neck Exam: normal inspection, non-tender, supple, full range of motion Respiratory Exam: normal breath sounds, lungs clear, No respiratory distress Cardiovascular Exam: regular rate/rhythm, normal heart sounds, normal peripheral pulses Gastrointestinal/Abdomen Exam: soft, tenderness, No mass Pelvic Exam: not done Rectal Exam: deferred Back Exam: normal inspection, normal range of motion, CVA tenderness (Right), No vertebral tenderness Extremity Exam: normal inspection, normal range of motion, pelvis stable Neurologic Exam: alert, oriented x 3, cooperative, 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, normal mood/affect, sensation nml, No motor deficits Skin Exam: normal color, warm, dry Lymphatic Exam: No adenopathy SpO2 Interpretation: normal O2 Delivery: Room Air - Course Nursing assessment & vital signs reviewed: Yes - CT Exams Abdomen/Pelvis CT Interpretation: Tele-radiologist Report Ordered Tests: Active Orders 24 hr Category Date Time Status IV Insertion STAT Care 10/25/21 23:42 Active ABDOMEN AND PELVIS W/0 CONTRAS [CT] Stat Exams 10/25/21 23:43 Taken CBC W DIFF Stat Lab 10/25/21 00:07 Completed CMP Stat Lab 10/25/21 00:07 Completed CULTURE,URINE Stat Lab 10/25/21 23:45 Received HCG,QUALITATIVE URINE Stat Lab 10/25/21 23:45 Completed UA W/RFX CULTURE Stat Lab 10/25/21 23:45 Completed Medication Summary Discontinued Medications Generic Name Dose Route Start Last Admin Trade Name Kiersten PRN Reason Stop Dose Admin Sodium Chloride 1,000 mls @ 999 mls/hr 10/25/21 23:42 10/26/21 00:25 Sodium Chloride 0.9% 1000 Ml IV 10/26/21 00:42 999 mls/hr .Q1H1M STA Administration Ceftriaxone Sodium/Dextrose 1 g in 50 mls @ 100 mls/hr 10/25/21 23:57 10/26/21 00:25 Rocephin 1 Gm-D5w 50 Ml Bag IV 10/26/21 00:26 100 ml/hr STAT STA 100 mls/hr Administration Sodium Chloride Confirm 10/26/21 00:19 Sodium Chloride 0.9% 1000 Ml Administered 10/26/21 00:20 Dose 1,000 mls @ ud .ROUTE .STK-MED ONE Ceftriaxone Sodium/Dextrose Confirm 10/26/21 00:19 Rocephin 1 Gm-D5w 50 Ml Bag Administered 10/26/21 00:20 Dose 1 g in 50 mls @ ud IV .STK-MED ONE Ketorolac Tromethamine 30 mg 10/25/21 23:42 10/26/21 00:25 Ketorolac Tromethamine 30 Mg/Ml Inj IV 10/25/21 23:43 30 mg STAT ONE Administration Ketorolac Tromethamine Confirm 10/26/21 00:19 Ketorolac Tromethamine 30 Mg/Ml Inj Administered 10/26/21 00:20 Dose 30 mg .ROUTE .STK-MED ONE Lab/Rad Data: Laboratory Result Diagrams 10/25/21 00:07 10/25/21 00:07 Laboratory Results 10/25/21 10/25/21 10/25/21 Range/Units 23:45 23:45 00:07 WBC (4.0-10.5) x10^3/uL RBC (4.1-5.4) x10^6/uL Hgb (12.0-16.0) g/dL Hct (35-47) % MCV (78-100) fL MCH (26-32) pg MCHC (32-36) g/dL RDW (11.5-14.0) % Plt Count (150-450) x10^3/uL MPV (7.5-11.0) fL Gran % (36.0-66.0) % Immature Gran % (Auto) (0.00-0.4) % Nucleat RBC Rel Count (0.00-0.1) % Eos # (Auto) (0-0.5) x10^3/uL Immature Gran # (Auto) (0.00-0.03) x10^3u/L Absolute Lymphs (auto) (1.0-4.6) x10^3/uL Absolute Monos (auto) (0.0-1.3) x10^3/uL Absolute Nucleated RBC (0.00-0.01) x10^3u/L Lymphocytes % (24.0-44.0) % Monocytes % (0.0-12.0) % Eosinophils % (0.00-5.0) % Basophils % (0.0-0.4) % Absolute Granulocytes (1.4-6.9) x10^3/uL Basophils # (0-0.4) x10^3/uL Sodium 136 L (137-145) mmol/L Potassium 3.5 (3.5-5.1) mmol/L Chloride 104 (98-107) mmol/L Carbon Dioxide 23 (22-30) mmol/L Anion Gap 13.2 (5-15) MEQ/L BUN 11 (7-17) mg/dL Creatinine 0.63 (0.52-1.04) mg/dL Estimated GFR > 60.0 ML/MIN Glucose 117 H (74-106) mg/dL Calcium 9.0 (8.4-10.2) mg/dL Total Bilirubin 0.60 (0.2-1.3) mg/dL AST 21 (14-36) U/L ALT 16 (0-35) U/L Alkaline Phosphatase 51 (38-126) U/L Serum Total Protein 6.5 (6.3-8.2) g/dL Albumin 3.8 (3.5-5.0) g/dL Urinalys Dipstick Clnc MAIN LAB Urine Color YELLOW (YELLOW) Urine Appearance SLIGHTLY CLOUDY (CLEAR) Urine pH 7.0 (5-6) Ur Specific [place] 1.020 (1.005-1.025) POC Urine Protein Conf 100 (Negative) Urine Ketones NEGATIVE (NEGATIVE) Urine Nitrite POSITIVE (NEGATIVE) Urine Bilirubin NEGATIVE (NEGATIVE) Urine Urobilinogen 0.2 (0-1) mg/dL Urine Leukocytes MODERATE (NEGATIVE) Urine WBC (Auto) >100 (0-5) /HPF Urine RBC (Auto) 11-15 (0-2) /HPF U Epithel Cells (Auto) RARE (FEW) /HPF Urine Bacteria (Auto) MANY (NEGATIVE) /HPF Urine RBC TRACE-INTACT (0-5) Edilberto/ul Ur Culture Indicated? YES Urine Glucose NEGATIVE (NEGATIVE) mg/dL Urine HCG, Qual NEGATIVE (Negative) 10/25/21 Range/Units 00:07 WBC 10.6 H (4.0-10.5) x10^3/uL RBC 3.74 L (4.1-5.4) x10^6/uL Hgb 10.9 L (12.0-16.0) g/dL Hct 33.4 L (35-47) % MCV 89.3 (78-100) fL MCH 29.1 (26-32) pg MCHC 32.6 (32-36) g/dL RDW 14.0 (11.5-14.0) % Plt Count 299 (150-450) x10^3/uL MPV 9.0 (7.5-11.0) fL Gran % 76.5 H (36.0-66.0) % Immature Gran % (Auto) 0.3 (0.00-0.4) % Nucleat RBC Rel Count 0.0 (0.00-0.1) % Eos # (Auto) 0.08 (0-0.5) x10^3/uL Immature Gran # (Auto) 0.03 (0.00-0.03) x10^3u/L Absolute Lymphs (auto) 1.40 (1.0-4.6) x10^3/uL Absolute Monos (auto) 0.91 (0.0-1.3) x10^3/uL Absolute Nucleated RBC 0.00 (0.00-0.01) x10^3u/L Lymphocytes % 13.2 L (24.0-44.0) % Monocytes % 8.6 (0.0-12.0) % Eosinophils % 0.8 (0.00-5.0) % Basophils % 0.6 (0.0-0.4) % Absolute Granulocytes 8.10 H (1.4-6.9) x10^3/uL Basophils # 0.06 (0-0.4) x10^3/uL Sodium (137-145) mmol/L Potassium (3.5-5.1) mmol/L Chloride (98-107) mmol/L Carbon Dioxide (22-30) mmol/L Anion Gap (5-15) MEQ/L BUN (7-17) mg/dL Creatinine (0.52-1.04) mg/dL Estimated GFR ML/MIN Glucose (74-106) mg/dL Calcium (8.4-10.2) mg/dL Total Bilirubin (0.2-1.3) mg/dL AST (14-36) U/L ALT (0-35) U/L Alkaline Phosphatase (38-126) U/L Serum Total Protein (6.3-8.2) g/dL Albumin (3.5-5.0) g/dL Urinalys Dipstick Clnc Urine Color (YELLOW) Urine Appearance (CLEAR) Urine pH (5-6) Ur Specific [place] (1.005-1.025) POC Urine Protein Conf (Negative) Urine Ketones (NEGATIVE) Urine Nitrite (NEGATIVE) Urine Bilirubin (NEGATIVE) Urine Urobilinogen (0-1) mg/dL Urine Leukocytes (NEGATIVE) Urine WBC (Auto) (0-5) /HPF Urine RBC (Auto) (0-2) /HPF U Epithel Cells (Auto) (FEW) /HPF Urine Bacteria (Auto) (NEGATIVE) /HPF Urine RBC (0-5) Edilberto/ul Ur Culture Indicated? Urine Glucose (NEGATIVE) mg/dL Urine HCG, Qual (Negative) - Progress Progress: improved Air Movement: good Blood Culture(s) Obtained: No Antibiotics given: Yes - Departure Departure Disposition: Home Clinical Impression: Urinary tract infection Condition: Stable Critical Care Time: No Referrals: SARA WHITLEY NP [Primary Care Provider] - Follow up/PCP as directed Instructions: Urinary Tract Infection, Adult (DC) Forms: Work/School Release Form Prescriptions: Cephalexin Mh 500 mg [Keflex 500 mg] 500 mg PO QID #40 cap
[2021-10-25 23:51] LABS: Appearance SLIGHTLY CLOUDY (CLEAR); Bilirubin NEGATIVE (NEGATIVE); Dipstick done @ ? MAIN LAB; Glucose NEGATIVE (NEGATIVE); Ketones NEGATIVE (NEGATIVE); Nitrite POSITIVE (NEGATIVE); Protein,Urine Dip 100 (Negative); RBC TRACE-INTACT Ery/ul (0-5); Urobilinogen 0.2 mg/dL (0-1)
[2021-10-25] MEDS ORDERED: ROCEPHIN 1 Gm-D5w 50 ml Bag** 1 G/50 ML IVPB IV STA (23:57)
[2021-10-26 00:02] LABS: Bacteria MANY /HPF (NEGATIVE); Epithelial Cells RARE /HPF (FEW); WBC >100 /HPF (0-5)
[2021-10-26 00:03] LABS: Urine Cultured Indicated? YES
[2021-10-26 00:09] LABS: Basophil (Absolute #) 0.06 x10^3/uL (0-0.4); Eosinophil % 0.8 % (0.00-5.0); Eosinophil (Absolute #) 0.08 x10^3/uL (0-0.5); Hematocrit 33.4 % (35-47); Hemoglobin 10.9 g/dL (12.0-16.0); Lymphocytes % 13.2 % (24.0-44.0); Mean Cell Volume 89.3 fL (78-100); Mean Corpuscular Hemoglobin 29.1 pg (26-32); Mean Corpuscular Hgb Concent. 32.6 g/dL (32-36); Monocyte (Absolute #) 0.91 x10^3/uL (0.0-1.3); Monocytes % 8.6 % (0.0-12.0); Neutrophil % 76.5 % (36.0-66.0); Platelet Count 299 x10^3/uL (150-450); Red Blood Count 3.74 x10^6/uL (4.1-5.4); White Blood Count 10.6 x10^3/uL (4.0-10.5)
[2021-10-26] MEDS ORDERED: Sodium Chloride 0.9% 1000 ML 1,000 ML ONE (00:19)
[2021-10-26] MEDS ORDERED: TORAdol 30 mg Injection ONE (00:19)
[2021-10-26] MEDS ORDERED: ROCEPHIN 1 Gm-D5w 50 ml Bag** 1 G/50 ML IVPB IV ONE (00:19)
[2021-10-26 00:28] LABS: ALBUMIN 3.8 g/dL (3.5-5.0); ALKALINE PHOSPHATASE 51 U/L (38-126); ANION GAP 13.2 MEQ/L (5-15); BLOOD UREA NITROGEN 11 mg/dL (7-17); CHLORIDE 104 mmol/L (98-107); Carbon Dioxide 23 mmol/L (22-30); Creatinine 1 0.63 mg/dL (0.52-1.04); EST GLOMERULAR FILTRATION RATE > 60.0 ML/MIN; Glucose 117 mg/dL (74-106); Potassium 3.5 mmol/L (3.5-5.1); SGOT/AST 21 U/L (14-36); SGPT/ALT 16 U/L (0-35); SODIUM 136 mmol/L (137-145); Total Protein 6.5 g/dL (6.3-8.2)
[2021-10-26] MEDS ORDERED: PYRIDIUM 200 MG PO STA (01:06)
[2021-10-26] MEDS ORDERED: PYRIDIUM 200 MG ONE (01:09)
[2021-10-26 01:26] VITALS: BP 102/74; PULSE 94; O2SAT 99
--- NOTE | 2021-10-26 07:32 | XRAY ---
Indication: Abdomen pain and bodyaches. Multiple contiguous axial images obtained through the abdomen and pelvis without contrast. Comparison: May 04, 2020. Lung bases again demonstrate small right lower lobe calcified granuloma and chunky distal paraesophageal calcified nodes. No infiltrate or effusion. Heart not enlarged. Noncontrasted stomach and bowel loops are nonobstructed with normal appendix. No free fluid/air. Again faint bilateral nephrocalcinosis. Left kidney now appears mildly edematous with minimal perinephric stranding, possibly underlying inflammatory/infectious process. Although there is no hydronephrosis or hydroureter, recent passage of calculus can have a similar appearance. Remaining liver, gallbladder, pancreas, spleen, adrenal glands, kidneys, ureters, bladder, uterus, and aorta are unremarkable for noncontrast exam. Osseous structures intact. Impression: 1. New left renal edema and minimal perinephric stranding. Rule out inflammatory/infectious etiologies. Recent passage of calculus can have a similar appearance. 2. Again incidental bilateral micro-nephrocalcinosis and old granulomatous disease. Comment: Preliminary interpretation made by [facility]. No critical discrepancy.
== END 2021-10-26 01:23 | disposition home or self-care (01) ==
LOC: ED 23:10
DX: N39.0 Urinary tract infection, site not specified (principal); M79.10 Myalgia, unspecified site; R30.0 Dysuria; R35.0 Frequency of micturition; R39.15 Urgency of urination; R51.9 Headache, unspecified; R50.9 Fever, unspecified; Z72.0 Tobacco use; Z79.899 Other long term (current) drug therapy
CPT/HCPCS: 36000; 36415; 74176; 80053; 81015; 84703; 85025; 87077; 87086; 87186; 96365; 96374; 99284; J0696; J1885; A9270-GY